=== PATIENT | female | born 1935 | race Caucasian/White ===

== ENCOUNTER → 2019-03-14 | Outpatient (REF) | LOC: M LAB LCGH 13:36 | PROVIDERS: ATTEND Surgery | DX: R59.1 Generalized enlarged lymph nodes (principal) ==

== ENCOUNTER 2019-04-16 11:01 | Inpatient (IN) | payer MEDICARE, BC ==
[~2019-04-16] VITALS: Ht 188 cm; Wt 76.5 kg
[2019-04-16 13:00] VITALS: BP 150/53
[2019-04-16] MEDS ORDERED: GLUCOSE 4 GM CHEW TABLET PO PRN (15:00)
[2019-04-16] MEDS ORDERED: DEXTROSE 50% 50 ML SYRINGE IV PRN (15:00)
[2019-04-16] MEDS ORDERED: GLUCAGON FOR INJ 1 MG VIAL (J1610) SC PRN (15:00)
[2019-04-16] MEDS ORDERED: SERT25TA21 PO (15:36)
[2019-04-16] MEDS ORDERED: DIGO0.123 PO (15:36)
[2019-04-16] MEDS ORDERED: FLON1SPR NARES (15:36)
[2019-04-16] MEDS ORDERED: NADO20TA PO (15:36)
[2019-04-16] MEDS ORDERED: ASCO500T PO (15:36)
[2019-04-16] MEDS ORDERED: BACITAB PO (15:36)
[2019-04-16] MEDS ORDERED: ROPI0.5T PO ×2 (15:36)
[2019-04-16] MEDS ORDERED: LEVOTAB10 PO (15:36)
[2019-04-16] MEDS ORDERED: SIMV40TA20 PO (15:36)
[2019-04-16] MEDS ORDERED: GLIM4TAB3 PO (15:36)
[2019-04-16] MEDS ORDERED: VALS1TAB68 PO (15:36)
[2019-04-16] MEDS ORDERED: MIRA3350 PO (15:36)
[2019-04-16 16:50] LABS: HEMATOCRIT 32.3 % (36.0-47.0); HEMOGLOBIN 9.4 g/dl (12.0-15.5); MEAN CORPUSCULAR HEMOGLOBIN 23.8 pg (27.0-33.0); MEAN CORPUSCULAR HGB CONC 29.1 g/dl (32.0-36.5); MEAN CORPUSCULAR VOLUME 81.8 fl (80.0-96.0); PLATELET COUNT, AUTOMATED 260 10^3/uL (150-450); RED BLOOD COUNT 3.95 10^6/uL (4.00-5.40); WHITE BLOOD COUNT 9.8 10^3/uL (4.0-10.0)
[2019-04-16] MEDS: FUROSEMIDE 40 MG/4 ML VIAL (J1940) IV SCH ×2 (17:20→23:51)
[2019-04-16] MEDS: HumaLOG INSULIN (NovoLOG) PER UNIT SC SCH ×2 (17:21→21:00)
[2019-04-16] MEDS: CEFTAROLINE FOSAMIL 600 MG in D5W MINI-BAG PLUS 50 ML IV SCH (17:21)
[2019-04-16 17:24] LABS: INR 1.23; PROTHROMBIN TIME 15.2 SECONDS (11.8-14.0)
[2019-04-16 17:34] LABS: ALBUMIN 2.5 GM/DL (3.2-5.2); BILIRUBIN,TOTAL 0.6 MG/DL (0.2-1.0); CALCIUM LEVEL 9.1 MG/DL (8.8-10.2); CREATININE FOR GFR 1.58 MG/DL (0.55-1.30); GLOMERULAR FILTRATION RATE 33.1 (>32); POTASSIUM SERUM 5.4 MEQ/L (3.5-5.1)
[2019-04-16] MEDS ORDERED: APIXABAN 5 MG TAB (ELIQUIS) PO SCH (21:00)
[2019-04-16] MEDS: rOPINIRole 1MG TAB PO SCH (21:13)
[2019-04-16] MEDS: DOCUSATE SODIUM 100 MG CAP PO SCH (21:14)
[2019-04-16] MEDS ORDERED: rOPINIRole 0.25 MG TAB(REQUIP) PO PRN (21:15)
[2019-04-16] MEDS ORDERED: rOPINIRole 1MG TAB PO PRN (21:19)
--- NOTE | 2019-04-16 21:26 | HPEPDOC ---
General Date of Admission Apr 16, 2019 at 14:26 Date of Service: Apr 16, 2019 Chief Complaint The patient is a 83-year-old female admitted with a reason for visit of DVT. 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 Cori complained of bilateral leg swelling graudually increasing for 2 to 3 moths wors e over the past month since she got the surgery in the right inguinal region and yesterday noted that the right leg was much more swollen than the left and much more red and painful and she could not bear any weight. She was admitted to [facility] where she was found to have left femoral DVT and gross bilateral subcutaneous edema right much worse than left with a possible localization in the right inguinal region which could be just subcutaneous Edema . She was evaluated by surgeon in [place] and he did not feel that there was any localized collection that needed to be drained. It was felt to tbe localized inguinal cellulitis. Pateint was started on vanco and zosyn in the other hospital cultures were sent. She was also started on Therapeutic lovenox. Her Hb on admission was 8.5 this morning it dropped to 7.0. patient was given 1 unit of blood and was placed for transfer to our hospital for consideration of IVC filter placement for [facility] possibility of ongoing bleeding and unable to use anticoagulation for the acute DVT. Patient was transferred here for futher management. Patient o my interview complained of pain and swelling of the right leg maximum in the right groin with pain of about 6/10 with no radiation . It was sharp stretching type. She denied any bleeding from anywhere. Dr Cuellar agreed to place a IVC filter tomorrow. Labs from [place] on 04/15 and 04/16 Hb 8.6 to 7.0, BUN 43, creatinine 1.7, albumin 2.3, B12 556, Folate 21.6, DIg 1.6, lactate 0.8, crp 50.6, ESR 56, iron 21, TSAT 9, TIBC 229, blood cultures and urine cultures were in progress, WBC 12K. Home Medications Scheduled Ascorbic Acid (Ascorbic Acid) 500 Mg Tablet, 1,000 MG PO DAILY, (Reported) Digoxin (Digoxin) 125 Mcg Tablet, 125 MCG PO Q2D, (Reported) ALTERNATES WITH 62.5MCG Digoxin (Digoxin) 125 Mcg Tablet, 62.5 MCG PO Q2D, (Reported) ALTERNATES WITH 125MCG Glimepiride (Glimepiride) 4 Mg Tablet, 4 MG PO DAILY, (Reported) L.acidoph/L.bulg/B.bif/S.therm (Bacid Caplet) 1 Each Tablet, 1 TAB PO DAILY, (Reported) Levocetirizine Dihydrochloride (Levocetirizine Dihydrochloride) 5 Mg Tablet, 5 MG PO DAILY, (Reported) Nadolol (Nadolol) 20 Mg Tablet, 20 MG PO DAILY, (Reported) Ropinirole HCl (Ropinirole HCl) 0.5 Mg Tablet, 1 MG PO QPM, (Reported) Sertraline HCl (Sertraline HCl) 25 Mg Tablet, 25 MG PO DAILY, (Reported) Simvastatin (Simvastatin) 40 Mg Tablet, 40 MG PO DAILY, (Reported) Valsartan (Valsartan) 320 Mg Tablet, 320 MG PO DAILY, (Reported) Scheduled PRN Fluticasone Propionate (Flonase Allergy Relief) 9.9 Ml [place].susp, 2 SPRAY NARES DAILY PRN for NASAL CONGESTION, (Reported) Polyethylene Glycol 3350 (Miralax) 119 Gm Powder, 17 GM PO DAILY PRN for CONSTIPATION, (Reported) dilute in 8 ounces of water or juice Ropinirole HCl (Ropinirole HCl) 0.5 Mg Tablet, 1 MG PO QHS PRN for RESTLESSNESS, (Reported) Allergies Coded Allergies: No Known Allergies (Verified Allergy, Unknown, 04/16/19) Past Medical History Medical History PSVT, Cervical cancer at age 29 s/p JOSE L and BSO, Right inguinal hernia s/p excis ion on 03/14/19, chronic anemia, Diabetes with diabetic neuropathy, GERD, asthma, depression, restless leg syndrome, hypertension, hyperlipidemia, anxiety, esophageal web, urge incontinence, impaired hearing, h/o rheumatc fever as a child. Surgical History appendectomy JOSE L and BSO bilateral cataracts neck surgery. Family History Significant Family History: Cancer (cervical cancer in mother and sister), Diabetes (mother) Social History * Smoker: Denies Alcohol: Denies Drugs: denies A-FIB/CHADSVASC A-FIB History Current/History of A-Fib/PAF?: No Review of Systems Constitutional: Reports: Weakness; Denies: Chills, Fever, Night Sweats Eyes: Denies: Pain, Vision change ENT: Reports: Head Aches Skin: Denies: Rash, Lesions, Breakdown Pulmonary: Denies: Dyspnea, Cough Cardiovascular: Reports: Edema; Denies: Chest Pain, Palpitations, Orthopnea, Paroxysmal Noc. Dyspnea, Lt Headedness Gastrointestinal: Reports: Abdominal Pain (right lower); Denies: Nausea, Vomiting, Diarrhea Genitourinary: Reports: Frequency, Incontinence Hematologic: Denies: Bruising, Bleeding Excessively Musculoskeletal: Reports: Leg Pain; Denies: Neck Pain, Back Pain, Joint Pain, Muscle Pain, Spasms Physical Examination General Exam: Positive: Alert, Cooperative, No Acute Distress Eye Exam: Positive: PERRLA, Conjunctiva & lids normal, EOMI; Negative: Sclera icteric ENT Exam: Positive: Atraumatic, Mucous membr. moist/pink, Pharynx Normal Neck Exam: Positive: Supple; Negative: JVD, thyromegaly Chest Exam: Positive: Clear to auscultation, Normal air movement Heart Exam: Positive: Rate Normal, Regular Rhythm, Normal S1, Normal S2, Murmurs (soft systolic murmur); Negative: Rubs Abdomen Exam: Positive: Normal bowel sounds, Soft, Tenderness (in the irhgt inguinal region); Negative: Hepatospenomegaly Extremity Exam: Positive: Edema (4+ bilateral pitting edema right . left extending up to both thighs, lower abdominal wall , bothe buttocks upto midback), Swelling (extending from jamee legs upto the chest anteroirly and also on the back up to the lowere chest) Skin Exam: Positive: Nl turgor and temperature Vital Signs Vital Signs Date Time Temp Pulse Resp B/P (MAP) Pulse Ox O2 Delivery O2 Flow Rate FiO2 04/16/19 13:00 98.5 63 16 150/53 (85) 97 Room Air Laboratory Data Labs 24H Laboratory Tests 2 04/16/19 16:37: Nucleated Red Blood Cells % (auto) 0.0, Prothrombin Time 15.2H, Prothromb Time International Ratio 1.23, Anion Gap 8, Glomerular Filtration Rate 33.1, Calcium Level 9.1, Ferritin 352H, Total Bilirubin 0.6, Aspartate Amino Transf (AST/SGOT) 16, Alanine Aminotransferase (ALT/SGPT) 14, Alkaline Phosphatase 90, Total Protein 6.0L, Albumin 2.5L, Albumin/Globulin Ratio 0.71L 04/16/19 16:52: Bedside Glucose (Misc Panel) 53L 04/16/19 17:30: Bedside Glucose (Misc Panel) 59L CBC/BMP Laboratory Tests 04/16/19 16:37 Assessment/Plan 83 year old female with PMH of PSVT, Cervical cancer at age 29 s/p JOSE L and BSO, Right inguinal hernia s/p excision on 03/14/19, chronic anemia, Diabetes with diabetic neuropathy, GERD, asthma, depression, restless leg syndrome, hypertension, hyperlipidemia, anxiety, esophageal web, urge incontinence, impaired hearing, h/o rheumatc fever as a child first presented to [place] ED from home for sudden difficulty in ambulating. Cori complained of bilateral leg swelling graudually increasing for 2 to 3 moths worse over the past month since she got the surgery in the right inguinal region and yesterday noted that the right leg was much more swollen than the left and much more red and painful and she could not bear any weight. She was admitted to [facility] where she was found to have left femoral DVT and gross bilateral subcutaneous edema right much worse than left with a possible localization in [facility] right inguigal region which could be just subcutaneous edea. She was evaluated by surgeon in [place] and he did not feel that there was any localized collection that needed to be drained. It was felt to tbe localized cellulitis. Sheilaeint was started on vanco and zosyn in the other hospital cultures were sent. She was also started on Therapeutic lovenox. Her Hb on admission was 8.5 this morning it dropped to 7.0. cori was given 1 unit of blood and was placed for transfer to our hospital for consideration of IVC filter placement for jamee possibility of ongoing bleeding and unable to use anticoagulation for the acute DVT. Patient was transferred here for futher management. Patient o my interview complained of pain and swelling of the right leg maximum in the right groin with pain of about 6/10 with no radiation . It was sharp stretching type. She denied any bleeding from anywhere. Dr Cuellar agreed to place a IVC filter tomorrow. Possible inguinal cellulitis vs chronic stasis and post surgical changes. will cover with ceftaroline till we get the cultures and procalcitonin back. no fever , no elevated WBC here. Left DVT for ivc filter placement No anticoagulation due to sudden drop in HH after starting lovenox NPO midnight. Anemia no overt bleeding. will check stool occult blood to evaluate for chronic GIB. patient does have chronic anemia possibly for CKD no iron def, no folate def and no Vit b12 def at present. received 1 unti of PRBC will monitor hh will place on pantoprazole. Anasarca probably due to hypoalbuminemia due to diabetic nephropathy, malnutrition, CKD. need to evaluate cardiac function for possible CHF echo will place the patient of lasix IV CKD stage 3 to 4 with massive fluid overload and chronic anemia and hyperkalemia. Creatinine may be appearing ot be flasely low due to fluid overload. will monitor creatinine as with successful diuresis the creatinine may go up. continue lasix. hold ACEI Hypertension will continue nadolol, hold ARB as hyperkalemic Diabetes will continue glimiperide and lispro AC and HS. Fs AC and HS. Hyperlipidemia statin. Depression sertraline Restless legs ropinirole PSVT patient on digoxin and nadolol at home will continue. [facility] Plan / VTE VTE Prophylaxis Ordered?: Yes MAREK ANTUNEZ MD Apr 16, 2019 18:53
[2019-04-16 22:00] VITALS: BP 142/65
[2019-04-16 23:41] LABS: HEMATOCRIT 29.7 % (36.0-47.0); HEMOGLOBIN 8.8 g/dl (12.0-15.5)
[2019-04-17] VITALS (9 sets, daily range): BP systolic 128–153; BP diastolic 53–70
[2019-04-17] MEDS: CEFTAROLINE FOSAMIL 600 MG in D5W MINI-BAG PLUS 50 ML IV SCH ×2 (05:31→17:17)
[2019-04-17 06:04] LABS: HEMATOCRIT 28.8 % (36.0-47.0); HEMOGLOBIN 8.8 g/dl (12.0-15.5); MEAN CORPUSCULAR HEMOGLOBIN 23.9 pg (27.0-33.0); MEAN CORPUSCULAR HGB CONC 30.6 g/dl (32.0-36.5); MEAN CORPUSCULAR VOLUME 78.3 fl (80.0-96.0); PLATELET COUNT, AUTOMATED 264 10^3/uL (150-450); RED BLOOD COUNT 3.68 10^6/uL (4.00-5.40); WHITE BLOOD COUNT 9.6 10^3/uL (4.0-10.0)
[2019-04-17 06:29] LABS: CALCIUM LEVEL 8.7 MG/DL (8.8-10.2); CREATININE FOR GFR 1.65 MG/DL (0.55-1.30); GLOMERULAR FILTRATION RATE 31.5 (>32); POTASSIUM SERUM 4.7 MEQ/L (3.5-5.1)
[2019-04-17] MEDS: HumaLOG INSULIN (NovoLOG) PER UNIT SC SCH ×4 (07:30→20:20)
[2019-04-17] MEDS: GLIMEPIRIDE 2 MG TAB PO SCH (07:30)
[2019-04-17] MEDS: FUROSEMIDE 40 MG/4 ML VIAL (J1940) IV SCH ×2 (07:54→16:19)
[2019-04-17] MEDS ORDERED: VALSARTAN 80 MG TAB (DIOVAN) PO SCH (09:00)
[2019-04-17] MEDS: DIGOXIN 0.0625MG PER 1/2TABLET PO SCH (09:00)
[2019-04-17] MEDS ORDERED: diphenhydrAMINE INJ 50MG/ML VIAL (J1200) As Ordered ONE (10:29)
[2019-04-17] MEDS ORDERED: ISOVUE-300 61% 50ML VIAL (Q9967) As Ordered ONE (10:30)
[2019-04-17] MEDS ORDERED: MIDAZOLAM INJ 2 MG/2 ML VIAL (J2250) As Ordered ONE (10:30)
[2019-04-17] MEDS ORDERED: fentaNYL 100 MCG/2 ML INJECTION (J3010) As Ordered ONE (10:30)
[2019-04-17] MEDS ORDERED: HEPARIN 1,000 UNITS/ML 10ML VIAL (FOR RADIOLOGY& DIALYSIS ONLY) As Ordered ONE (10:30)
[2019-04-17] MEDS ORDERED: LIDOCAINE 1% MDV 20ML VIAL As Ordered ONE (10:31)
--- NOTE | 2019-04-17 12:16 | IRMSE ---
[facility] IR Moderate Sedation Eval. Date and Time Date: Apr 17, 2019 Time: 11:10 ASA Classification ASA Classification: III-Severe systemic dis. Mallampati Score: II NPO: Yes Obstructive Sleep Apnea: No Interval Plan: moderate sedation JULIEN ROGERS MD Apr 17, 2019 12:16
--- NOTE | 2019-04-17 12:17 | POST-OPPD ---
Postoperative Procedure Note Date Of Procedure: Apr 17, 2019 Time Of Procedure: 12:16 PREOPERATIVE DIAGNOSIS: DVT CI to AC POSTOPERATIVE DIAGNOSIS: same FINDINGS: normal ivc PROCEDURE: IVC filter placed SURGEON: beatris ANESTHESIA: mod sed ESTIMATED BLOOD LOSS: < 5 ml COMPLICATIONS: none POSTOPERATIVE CONDITION: stable JULIEN ROGERS MD Apr 17, 2019 12:17
[2019-04-17] MEDS: SIMVASTATIN 40 MG TAB PO SCH (12:50)
[2019-04-17] MEDS: NADOLOL 20MG TABLET PO SCH (12:50)
[2019-04-17] MEDS: SERTRALINE HCL 25 MG TABLET PO SCH (12:50)
[2019-04-17] MEDS: DOCUSATE SODIUM 100 MG CAP PO SCH ×2 (12:51→20:47)
[2019-04-17] MEDS ORDERED: ACETAMINOPHEN 500 MG TAB PO PRN (13:30)
--- NOTE | 2019-04-17 13:42 | IPNPDOC ---
Subjective Date Seen The patient was seen on 04/17/19. Subjective Chief Complaint/HPI Continues to have right leg pain. Had IVC filter placement this am. Good urine ouput overnight with net negative of 2.8 liters in less than 24 hours. Denies any SOb or any cough . no fever or chills, no chest pain Objective Physical Examination General Exam: Positive: Alert, Cooperative, No Acute Distress Eye Exam: Positive: PERRLA, Conjunctiva & lids normal, EOMI; Negative: Sclera icteric ENT Exam: Positive: Atraumatic, Mucous membr. moist/pink, Pharynx Normal Neck Exam: Positive: Supple; Negative: JVD, thyromegaly Chest Exam: Positive: Clear to auscultation, Normal air movement Heart Exam: Positive: Rate Normal, Regular Rhythm, Normal S1, Normal S2, Murmurs (soft systolic murmur); Negative: Rubs Abdomen Exam: Positive: Normal bowel sounds, Soft, Tenderness (in the irhgt inguinal region); Negative: Hepatospenomegaly Extremity Exam: Positive: Edema (4+ bilateral pitting edema right . left extending up to both thighs, lower abdominal wall , bothe buttocks upto midback), Swelling (extending from [facility] legs upto the chest anteroirly and also on the back up to the lowere chest) Skin Exam: Positive: Nl turgor and temperature Assessment /Plan Assessment 83 year old female with PMH of PSVT, Cervical cancer at age 29 s/p JOSE L and BSO, Right inguinal hernia s/p excision on 03/14/19, chronic anemia, Diabetes with diabetic neuropathy, GERD, asthma, depression, restless leg syndrome, hypertension, hyperlipidemia, anxiety, esophageal web, urge incontinence, impaired hearing, h/o rheumatc fever as a child first presented to [place] ED from home for sudden difficulty in ambulating. [place] complained of bilateral leg swelling graudually increasing for 2 to 3 moths worse over the past month since she got the surgery in the right inguinal region and yesterday noted that the right leg was much more swollen than the left and much more red and painful and she could not bear any weight. She was admitted to [facility] where she was found to have left femoral DVT and gross bilateral subcutaneous edema right much worse than left with a possible localization in jamee right inguigal region which could be just subcutaneous edea. She was evaluated by surgeon in [place] and he did not feel that there was any localized collection that needed to be drained. It was felt to tbe localized cellulitis. Pateint was started on vanco and zosyn in the other hospital cultures were sent. She was also started on Therapeutic lovenox. Her Hb on admission was 8.5 this morning it dropped to 7.0. patient was given 1 unit of blood and was placed for transfer to our hospital for consideration of IVC filter placement for the possibility of ongoing bleeding and unable to use anticoagulation for the acute DVT. Patient was transferred here for further management. Patient o my interview complained of pain and swelling of the right leg maximum in the right groin with pain of about 6/10 with no radiation . It was sharp stretching type. She denied any bleeding from anywhere. Dr Cuellar agreed to place a IVC filter tomorrow. Possible inguinal Cellulitis vs chronic stasis and post surgical changes. will cover with ceftaroline till we get the cultures and procalcitonin back. no fever , no elevated WBC here. Left DVT Had IVC filter placed on 04/17/19 No anticoagulation due to sudden drop in HH after starting lovenox Anemia no overt bleeding. will check stool occult blood to evaluate for chronic GIB. patient does have chronic anemia possibly from CKD no iron def, no folate def and no Vit b12 def at present. received 1 unit of PRBC will monitor hh will place on pantoprazole. Anasarca probably due to hypoalbuminemia due to diabetic nephropathy, malnutrition, CKD. will check 24 hour urine for protein to seen if she has nephrotic syndrome or not. need to evaluate cardiac function for possible CHF echo will place the patient of lasix IV CKD stage 3 to 4 with massive fluid overload and chronic anemia and hyperkalemia. Creatinine may be appearing ot be flasely low due to fluid overload. will monitor creatinine as with successful diuresis the creatinine may go up. continue lasix. hold ACEI Hypertension will continue nadolol, hold ARB Diabetes will continue glimiperide and lispro AC and HS. Fs AC and HS. Hyperlipidemia statin. Depression sertraline Restless legs ropinirole PSVT patient on digoxin and nadolol at home will continue. Dig level 1.6 from [place]. Plan/VTE VTE Prophylaxis Ordered?: Yes VS, I&O, 24H, Fishbone Vital Signs/I&O Vital Signs Date Time Temp Pulse Resp B/P (MAP) Pulse Ox O2 Delivery O2 Flow Rate FiO2 04/17/19 13:30 97.5 58 17 131/54 (79) 95 Room Air 04/17/19 11:45 3 I&O- Last 24 Hours up to 6 AM 04/17/19 06:00 Intake Total 370 ml Output Total 2675 ml Balance -2305 ml Laboratory Data 24H LABS Laboratory Tests 2 04/16/19 16:37: Nucleated Red Blood Cells % (auto) 0.0, Prothrombin Time 15.2H, Prothromb Time I nternational Ratio 1.23, Anion Gap 8, Glomerular Filtration Rate 33.1, Calcium Level 9.1, Ferritin 352H, Total Bilirubin 0.6, Aspartate Amino Transf (AST/SGOT) 16, Alanine Aminotransferase (ALT/SGPT) 14, Alkaline Phosphatase 90, Total Protein 6.0L, Albumin 2.5L, Albumin/Globulin Ratio 0.71L 04/16/19 16:52: Bedside Glucose (Misc Panel) 53L 04/16/19 17:30: Bedside Glucose (Misc Panel) 59L 04/16/19 18:45: Bedside Glucose (Misc Panel) 126H 04/16/19 20:30: Bedside Glucose (Misc Panel) 158H 04/17/19 05:46: Nucleated Red Blood Cells % (auto) 0.0, Anion Gap 8, Glomerular Filtration Rate 31.5L, Calcium Level 8.7L 04/17/19 12:45: Bedside Glucose (Misc Panel) 61L CBC/BMP Laboratory Tests 04/16/19 16:37 04/16/19 23:31 04/17/19 05:46 MAREK ANTUNEZ MD Apr 17, 2019 13:42
[2019-04-17 13:48] LABS: HEMATOCRIT 31.4 % (36.0-47.0); HEMOGLOBIN 9.5 g/dl (12.0-15.5)
[2019-04-17 14:26] LABS: APPEARANCE, URINE CLOUDY (CLEAR); BACTERIA, URINE AUTO 1+ (NEGATIVE); BILIRUBIN, URINE AUTO NEGATIVE (NEGATIVE); BLOOD, URINE BLOOD 1+ (NEGATIVE); COLOR, URINE YELLOW (YELLOW); GLUCOSE, URINE (UA) AUTO NEGATIVE (NEGATIVE); KETONE, URINE AUTO NEGATIVE (NEGATIVE); LEUKOCYTE ESTERASE, URINE AUTO 3+ (NEGATIVE); MUCUS, URINE SMALL (NEGATIVE); NITRITE, URINE AUTO NEGATIVE (NEGATIVE); PROTEIN, URINE AUTO NEGATIVE (NEGATIVE); RBC, URINE AUTO 18 /HPF (0-3); SPECIFIC GRAVITY URINE AUTO 1.009 (1.002-1.035); SQUAMOUS EPITHELIAL CELL UR AU 4 /HPF (0-6); TRANSITIONAL EPITHELIAL AUTO <1 /HPF; UROBILINOGEN, URINE AUTO 0.2 mg/dL (0.0-2.0); WBC, URINE AUTO 180 /HPF (0-3)
[2019-04-17 17:06] LABS: HEMATOCRIT 30.3 % (36.0-47.0); HEMOGLOBIN 9.3 g/dl (12.0-15.5)
--- NOTE | 2019-04-17 19:41 | ECHO ---
DATE OF PROCEDURE: 04/17/2019 REFERRING PHYSICIAN: Dr. Sam Sandra INDICATION: Edema. HEIGHT: 188 cm WEIGHT: 74 kg DIMENSIONS: IVS: 1.0 LV: 3.6 LVPW: 1.1 LA: 3.2 Aorta: 3.2 RV: 3.2 Mitral E wave velocity: 105, A wave: 149 FINDINGS: Study is of good technical quality. The patient is in sinus rhythm. Left ventricle is of normal size and has hyperdynamic contractility with estimated left ventricular ejection fraction (LVEF) around 70%. Right ventricle does not appear grossly enlarged. Left atrium is at least mildly enlarged. Right atrium appears normal. Aortic valve is tricuspid. There is prominent sclerosis but no significant limitations of mobility. There are also degenerative abnormalities of mitral valve with mitral annular calcifications. Tricuspid valve appears normal. Pulmonic valve was not well seen. Small noncompressive pericardial effusion is noted. Inferior vena cava is normal size. Aortic root appears normal. Aortic arch and abdominal aorta were not well visualized. Doppler interrogation of aortic valve reveals trace insufficiency and trivial stenosis with mean gradient only 6 mmHg. There is no significant mitral stenosis or insufficiency. There is trace tricuspid insufficiency with calculated pulmonary artery pressure within normal limits. Mitral inflow pattern reveals grade 1 diastolic dysfunction. CONCLUSION 1. Study is of good technical quality. 2. Normal LV size with hyperdynamic LV systolic function and grade 1 diastolic dysfunction. 3. No hemodynamically significant valvular disease. 4. Normal central venous pressure and probably normal pulmonary artery pressure. 5. Small noncompressive pericardial effusion. COMMENT: Subacute bacterial endocarditis (SBE) prophylaxis is not recommended. The study is not supportive of cardiac cause of the patient's edema. [facility]
[2019-04-17] MEDS: rOPINIRole 1MG TAB PO SCH (20:47)
[2019-04-17 23:04] LABS: HEMATOCRIT 29.7 % (36.0-47.0); HEMOGLOBIN 9.1 g/dl (12.0-15.5)
[2019-04-18] MEDS: FUROSEMIDE 40 MG/4 ML VIAL (J1940) IV SCH ×3 (00:21→21:38)
[2019-04-18 02:00] VITALS: BP 121/46
[2019-04-18 06:23] LABS: HEMATOCRIT 30.2 % (36.0-47.0); HEMOGLOBIN 8.9 g/dl (12.0-15.5); MEAN CORPUSCULAR HEMOGLOBIN 23.7 pg (27.0-33.0); MEAN CORPUSCULAR HGB CONC 29.5 g/dl (32.0-36.5); MEAN CORPUSCULAR VOLUME 80.3 fl (80.0-96.0); PLATELET COUNT, AUTOMATED 250 10^3/uL (150-450); RED BLOOD COUNT 3.76 10^6/uL (4.00-5.40); WHITE BLOOD COUNT 9.4 10^3/uL (4.0-10.0)
[2019-04-18 06:45] LABS: CALCIUM LEVEL 9.1 MG/DL (8.8-10.2); CREATININE FOR GFR 1.99 MG/DL (0.55-1.30); GLOMERULAR FILTRATION RATE 25.4 (>32); POTASSIUM SERUM 4.3 MEQ/L (3.5-5.1)
[2019-04-18] MEDS: HumaLOG INSULIN (NovoLOG) PER UNIT SC SCH ×3 (07:30→17:25)
[2019-04-18] MEDS: GLIMEPIRIDE 2 MG TAB PO SCH (09:21)
[2019-04-18] MEDS: MIRALAX *UNIT DOSE* 17GM PACKET PO SCH (09:22)
[2019-04-18] MEDS: SIMVASTATIN 40 MG TAB PO SCH (09:22)
[2019-04-18] MEDS: DOCUSATE SODIUM 100 MG CAP PO SCH ×2 (09:22→21:39)
[2019-04-18] MEDS: SENNA 8.6 MG TAB (SENOKOT) PO SCH ×2 (09:22→21:39)
[2019-04-18] MEDS: SERTRALINE HCL 25 MG TABLET PO SCH (09:22)
[2019-04-18] MEDS: NADOLOL 20MG TABLET PO SCH (09:23)
[2019-04-18] MEDS: DIGOXIN 0.125 MG TAB PO SCH (09:24)
[2019-04-18 10:00] VITALS: BP 128/60
--- NOTE | 2019-04-18 10:42 | IRINPTCON ---
[facility] IR Inpatient Consultation IR Inpatient Consultation DATE: Apr 17, 2019 REASON FOR CONSULTATION/CHIEF COMPLAINT: Lower extremity deep vein thrombosis. Contraindication to anticoagulation. HISTORY OF PRESENT ILLNESS: 83-year-old female status post right inguinal hernia excision on 03/14/2019 presented to [facility] with right leg swelling and pain greater than left. She was admitted to [facility] where she was found to have a left femoral deep vein thrombosis. She was started on Lovenox but hemoglobin dropped from 8.5 to 7 with concerns for occult bleeding and or complications associated with right groin surgical site. May require ongoing surgical revision and/or debridement of site. Therefore provider request an IVC filter placement for contraindications to anti-coagulation. ALLERGIES: Please see below. HOME MEDICATIONS: Please see below. PAST MEDICAL HISTORY: PSVT Cervical cancer Right inguinal hernia Chronic anemia Diabetes GERD Asthma Depression Restless leg syndrome Hypertension Hyperlipidemia Anxiety Esophageal web Impaired hearing Urge incontinence PAST SURGICAL HISTORY: Appendectomy JOSE L and BSO Bilateral cataract surgery Neck surgery FAMILY HISTORY: Noncontributory SOCIAL HISTORY: Nonsmoker, no alcohol or drugs REVIEW OF SYSTEMS: Otherwise negative PHYSICAL EXAMINATION: VITAL SIGNS: Please see below. GENERAL APPEARANCE: Appears well. Comfortable at rest. HEENT: No scleral icterus. RESPIRATORY: Normal breathing at rest. CARDIOVASCULAR: Normal rate. ABDOMEN: Non-distended. EXTREMITIES: Right groin and thigh, incredibly red, inflamed and tender and tense to touch. Left groin soft nontender. NEUROLOGICAL: Alert and oriented. PSYCHIATRIC: Appropriate to circumstance. LABORATORY DATA: 04/17/2019 hemoglobin 8.8 WBC 9.6 hematocrit 28.8 platelets 264 04/16/2019 sodium 138 potassium 5.4 BUNs 41 creatinine 1.58 bilirubin 0.6 AST 16 male T 14 ALP 90 INR 1.23 ASSESSMENT/PLAN: 83-year-old female status post recent surgery with possible re- intervention required in the right groin presents with left lower extremity deep vein thrombosis, drop in hemoglobin, concern for occult bleeding and therefore request for IVC filter placement. I agree in this setting an IVC filter is indicated. However, patient should return when filter is no longer needed for removal. We will place the filter today. Patient to follow-up in IR clinic in 6 months. I spent 30 minutes in consultation with the patient. Thank you for this referral. Allergies Coded Allergies: No Known Allergies (Verified Allergy, Unknown, 04/16/19) Home Medications Scheduled Ascorbic Acid (Ascorbic Acid), 1,000 MG PO DAILY, (Reported) Digoxin (Digoxin), 125 MCG PO Q2D, (Reported) Digoxin (Digoxin), 62.5 MCG PO Q2D, (Reported) Glimepiride (Glimepiride), 4 MG PO DAILY, (Reported) L.acidoph/L.bulg/B.bif/S.therm (Bacid Caplet), 1 TAB PO DAILY, (Reported) Levocetirizine Dihydrochloride (Levocetirizine Dihydrochloride), 5 MG PO DAILY, (Reported) Nadolol (Nadolol), 20 MG PO DAILY, (Reported) Ropinirole HCl (Ropinirole HCl), 1 MG PO QPM, (Reported) Sertraline HCl (Sertraline HCl), 25 MG PO DAILY, (Reported) Simvastatin (Simvastatin), 40 MG PO DAILY, (Reported) Valsartan (Valsartan), 320 MG PO DAILY, (Reported) Scheduled PRN Fluticasone Propionate (Flonase Allergy Relief), 2 SPRAY NARES DAILY PRN for NASAL CONGESTION, (Reported) Polyethylene Glycol 3350 (Miralax), 17 GM PO DAILY PRN for CONSTIPATION, (Reported) Ropinirole HCl (Ropinirole HCl), 1 MG PO QHS PRN for RESTLESSNESS, (Reported) VS, I&O, 24H, Fishbone Vital Signs/I&O Vital Signs Date Time Temp Pulse Resp B/P (MAP) Pulse Ox O2 Delivery O2 Flow Rate FiO2 04/18/19 09:24 68 04/18/19 09:23 120/56 04/18/19 06:00 98.5 18 93 Room Air 04/17/19 11:45 3 I&O- Last 24 Hours up to 6 AM 04/18/19 06:00 Intake Total 570 ml Output Total 2750 ml Balance -2180 ml Laboratory Data 24H LABS Laboratory Tests 2 04/17/19 12:45: Bedside Glucose (Misc Panel) 61L 04/17/19 13:44: Bedside Glucose (Misc Panel) 84 04/17/19 14:00: Urine Color YELLOW, Urine Appearance CLOUDYH, Urine pH 5.0, Urine Specific [place] 1.009, Urine Protein NEGATIVE, Urine Glucose (Auto)(UA) NEGATIVE, Urine Ketones (Auto) NEGATIVE, Urine Blood 1+H, Urine Nitrite NEGATIVE, Urine Bilirubin NEGATIVE, Urine Urobilinogen 0.2, Urine Leukocyte Esterase (Auto) 3+H, Urine WBC (Auto) 180H, Urine RBC (Auto) 18H, Urine Hyaline Casts (Auto) 15, Ur ine Bacteria (Auto) 1+H, Urine Squamous Epithelial Cells 4, Urine Transitional Epithelial Cells <1, Urine Mucus (Auto) SMALL, Urine Sperm (Auto) 04/17/19 16:21: Bedside Glucose (Misc Panel) 104 04/17/19 20:14: Bedside Glucose (Misc Panel) 188H 04/18/19 05:42: Nucleated Red Blood Cells % (auto) 0.0, Anion Gap 8, Glomerular Filtration Rate 25.4L, Calcium Level 9.1 CBC/BMP Laboratory Tests 04/17/19 13:11 04/17/19 16:43 04/17/19 22:56 04/18/19 05:42 JULIEN ROGERS MD Apr 18, 2019 10:42
--- NOTE | 2019-04-18 10:57 | REP ---
IR IVC filter placement. IR Venogram. IR moderate sedation. Ultrasound of the left groin. Ultrasound of the right neck Clinical indication : Deep vein thrombosis. Contraindication to anticoagulation. Physician: Dr. Cuellar. Procedure: The patient was advised of the benefits, risks and alternatives of the procedure and informed consent was obtained. The time-out was performed with verification of the patient's name, MRN, site of procedure and type of procedure to be performed. The patient was positioned in the supine position on the angiographic table. The site was prepped and draped in the usual sterile fashion. Moderate sedation was performed by the physician including the presence of an independent trained observer who assisted in monitoring the patient's level of consciousness and physiologic status. Following administration of Fentanyl and Versed , the physician spent 45 minutes of continuous face to face time with the patient. Preliminary ultrasound of the left groin was performed and this demonstrates thrombus within the left common femoral vein which is noncompressible. The left common femoral vein was accessed using a micropuncture kit, but the thrombus could not be cannulated. Preliminary ultrasound of the right neck was therefore performed and this demonstrates patent and compressible right internal jugular vein. The site was prepped and draped in the usual sterile fashion. The right internal jugular vein was accessed under ultrasound guidance using a micropuncture kit. An 018 wire was advanced into the inferior vena cava. The needle was exchanged for a micro sheath. The inner stiffener was removed and an Amplatz wire was advanced through the micro sheath under fluoroscopy guidance into the inferior vena cava and left common iliac vein. The sheath was exchanged over the wire for an IVC filter sheath. An inferior vena cava venogram was then performed demonstrating a normal caliber inferior vena cava without filling defects and the renal vein inflow at the L1 L2 level. No caval anomalies were identified. A filter was then advanced through the sheath and positioned within the infrarenal inferior vena cava. The filter was then deployed in the usual fashion. Positioning was confirmed fluoroscopically. The sheath was then removed and hemostasis obtained with manual compression. The patient tolerated the procedure well and was returned to PRU in stable condition. EBL: Less than 5 ml. Complications: None. Conclusion: 1. Normal inferior vena cava venogram. 2. Successful deployment of a cook select filter in the infrarenal inferior vena cava. 3. Patient to return for filter retrieval when no longer needed. Follow up in IR clinic in 6 months. Thank you this referral. Electronically Signed by Keily Cuellar MD 04/18/2019 10:55 A
--- NOTE | 2019-04-18 12:02 | IPNPDOC ---
Subjective Date Seen The patient was seen on 04/18/19. Subjective Chief Complaint/HPI No new complaints this am. The legs are still very heavy and difficult to move, Denies any dysuria , has urinary incontinence, No fever or chills, no chest pain or SOB. Objective Physical Examination General Exam: Positive: Alert, Cooperative, No Acute Distress Eye Exam: Positive: PERRLA, Conjunctiva & lids normal, EOMI; Negative: Sclera icteric ENT Exam: Positive: Atraumatic, Mucous membr. moist/pink, Pharynx Normal Neck Exam: Positive: Supple; Negative: JVD, thyromegaly Chest Exam: Positive: Clear to auscultation, Normal air movement Heart Exam: Positive: Rate Normal, Regular Rhythm, Normal S1, Normal S2, Murmurs (soft systolic murmur); Negative: Rubs Abdomen Exam: Positive: Normal bowel sounds, Soft, Tenderness (in the irhgt inguinal region); Negative: Hepatospenomegaly Extremity Exam: Positive: Edema (4+ bilateral pitting edema right . left extending up to both thighs, lower abdominal wall , bothe buttocks upto midbac k), Swelling (extending from [facility] legs upto the chest anteroirly and also on the back up to the lowere chest) Skin Exam: Positive: Nl turgor and temperature Assessment /Plan Assessment 83 year old female with PMH of PSVT, Cervical cancer at age 29 s/p JOSE L and BSO, Right inguinal hernia s/p excision on 03/14/19, chronic anemia, Diabetes with d iabetic neuropathy, GERD, asthma, depression, restless leg syndrome, hypertension, hyperlipidemia, anxiety, esophageal web, urge incontinence, impaired hearing, h/o rheumatc fever as a child first presented to [place] ED from home for sudden difficulty in ambulating. Irving complained of bilateral leg swelling graudually increasing for 2 to 3 moths worse over the past month since she got the surgery in the right inguinal region and yesterday noted that the right leg was much more swollen than the left and much more red and painful and she could not bear any weight. She was admitted to [facility] where she was found to have left femoral DVT and gross bilateral subcutaneous edema right much worse than left with a possible localization in [facility] right inguigal region which could be just subcutaneous edea. She was evaluated by surgeon in [place] and he did not feel that there was any localized collection that needed to be drained. It was felt to tbe localized cellulitis. Pateint was started on vanco and zosyn in the other hospital cultures were sent. She was also started on Therapeutic lovenox. Her Hb on admission was 8.5 this morning it dropped to 7.0. patient was given 1 unit of blood and was placed for transfer to our hospital for consideration of IVC filter placement for the possibility of ongoing bleeding and unable to use anticoagulation for the acute DVT. Patient was transferred here for further management. Patient o my interview complained of pain and swelling of the right leg maximum in the right groin with pain of about 6/10 with no radiation . It was sharp stretching type. She denied any bleeding from anywhere. Dr Cuellar agreed to place a IVC filter tomorrow. No cellulitis, No elevation of WBC, procalcitonin low 0.21 antibiotic stopped Leg swelling and erythema is due to massive edema and stasis rubor with some post surgical changes in the right groin. Left DVT Had IVC filter placed on 04/17/19 Anemia no overt bleeding. will check stool occult blood to evaluate for chronic GIB. patient does have chronic anemia possibly from CKD no iron def, no folate def and no Vit b12 def at present. received 1 unit of PRBC HH stable. will place on pantoprazole. will probably give a trial of anticoagulation prior to discharge. Anasarca due to hypoalbuminemia due to malnutrition No protein in UA so no nephrotic syndrome. 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 Creatinine may be appearing ot be flasely low due to fluid overload. will monitor creatinine as with successful diuresis the creatinine may go up. continue lasix. hold ACEI Hypertension will continue nadolol, hold ARB Diabetes will continue glimiperide and lispro AC and HS. Fs AC and HS. Hyperlipidemia statin. Depression sertraline Restless legs ropinirole PSVT patient on digoxin and nadolol at home will continue. Dig level 1.6 from [place]. Plan/VTE VTE Prophylaxis Ordered?: Yes VS, I&O, 24H, Fishbone Vital Signs/I&O Vital Signs Date Time Temp Pulse Resp B/P (MAP) Pulse Ox O2 Delivery O2 Flow Rate FiO2 04/18/19 02:00 98.3 59 18 121/46 (71) 95 Room Air 04/17/19 11:45 3 I&O- Last 24 Hours up to 6 AM 04/18/19 06:00 Intake Total 570 ml Output Total 2100 ml Balance -1530 ml Laboratory Data 24H LABS Laboratory Tests 2 04/17/19 12:45: Bedside Glucose (Misc Panel) 61L 04/17/19 13:44: Bedside Glucose (Misc Panel) 84 04/17/19 14:00: Urine Color YELLOW, Urine Appearance CLOUDYH, Urine pH 5.0, Urine Specific [place] 1.009, Urine Protein NEGATIVE, Urine Glucose (Auto)(UA) NEGATIVE, Urine Ketones (Auto) NEGATIVE, Urine Blood 1+H, Urine Nitrite NEGATIVE, Urine Bilirubin NEGATIVE, Urine Urobilinogen 0.2, Urine Leukocyte Esterase (Auto) 3+H, Urine WBC (Auto) 180H, Urine RBC (Auto) 18H, Urine Hyaline Casts (Auto) 15, Urine Bacteria (Auto) 1+H, Urine Squamous Epithelial Cells 4, Urine Transitional Epithelial Cells <1, Urine Mucus (Auto) SMALL, Urine Sperm (Auto) 04/17/19 16:21: Bedside Glucose (Misc Panel) 104 04/17/19 20:14: Bedside Glucose (Misc Panel) 188H 04/18/19 05:42: Nucleated Red Blood Cells % (auto) 0.0 CBC/BMP Laboratory Tests 04/17/19 13:11 04/17/19 16:43 04/17/19 22:56 04/18/19 05:42 MAREK ANTUNEZ MD Apr 18, 2019 06:34
[2019-04-18] MEDS: rOPINIRole 1MG TAB PO SCH (21:39)
[2019-04-18 22:00] VITALS: BP 124/56
[2019-04-19 02:00] VITALS: BP 129/60
[2019-04-19 07:01] LABS: HEMATOCRIT 31.1 % (36.0-47.0); HEMOGLOBIN 9.2 g/dl (12.0-15.5); MEAN CORPUSCULAR HEMOGLOBIN 23.7 pg (27.0-33.0); MEAN CORPUSCULAR HGB CONC 29.6 g/dl (32.0-36.5); MEAN CORPUSCULAR VOLUME 79.9 fl (80.0-96.0); PLATELET COUNT, AUTOMATED 260 10^3/uL (150-450); RED BLOOD COUNT 3.89 10^6/uL (4.00-5.40); WHITE BLOOD COUNT 12.5 10^3/uL (4.0-10.0)
[2019-04-19] MEDS ORDERED: GLIMEPIRIDE 2 MG TAB PO SCH (07:30)
[2019-04-19 07:43] LABS: CALCIUM LEVEL 8.9 MG/DL (8.8-10.2); CREATININE FOR GFR 2.13 MG/DL (0.55-1.30); GLOMERULAR FILTRATION RATE 23.4 (>32)
[2019-04-19] MEDS ORDERED: DEXTROSE 50% 50 ML SYRINGE IV STA (09:02)
[2019-04-19] MEDS ORDERED: DEXTROSE 50% 50 ML SYRINGE IV ONE (09:15)
[2019-04-19] MEDS: FUROSEMIDE 40 MG/4 ML VIAL (J1940) IV SCH ×2 (09:23→21:11)
[2019-04-19] MEDS: SENNA 8.6 MG TAB (SENOKOT) PO SCH ×2 (09:23→21:11)
[2019-04-19] MEDS: DOCUSATE SODIUM 100 MG CAP PO SCH ×2 (09:23→21:11)
[2019-04-19] MEDS: SERTRALINE HCL 25 MG TABLET PO SCH (09:23)
[2019-04-19] MEDS: MIRALAX *UNIT DOSE* 17GM PACKET PO SCH (09:23)
[2019-04-19] MEDS: SIMVASTATIN 40 MG TAB PO SCH (09:23)
[2019-04-19] MEDS: DIGOXIN 0.0625MG PER 1/2TABLET PO SCH (09:24)
[2019-04-19] MEDS: NADOLOL 20MG TABLET PO SCH (09:27)
--- NOTE | 2019-04-19 13:13 | IPNPDOC ---
Subjective Date Seen The patient was seen on 04/19/19. Subjective Chief Complaint/HPI Says her left leg feels better and she is able to lift it up easily but her right leg still is very heavy and painful and swollen. No fever or chills, no chest pain or sob , no abdominal pain , nausea or vomiting. Says has not had a bowel movement morgan week and feels very constipated. Objective Physical Examination General Exam: Positive: Alert, Cooperative, No Acute Distress Eye Exam: Positive: PERRLA, Conjunctiva & lids normal, EOMI; Negative: Sclera icteric ENT Exam: Positive: Atraumatic, Mucous membr. moist/pink, Pharynx Normal Neck Exam: Positive: Supple; Negative: JVD, thyromegaly Chest Exam: Positive: Clear to auscultation, Normal air movement Heart Exam: Positive: Rate Normal, Regular Rhythm, Normal S1, Normal S2, Murmurs (soft systolic murmur); Negative: Rubs Abdomen Exam: Positive: Normal bowel sounds, Soft, Tenderness (in the irhgt inguinal region); Negative: Hepatospenomegaly Extremity Exam: Positive: Edema (4+ bilateral pitting edema right . left extending up to both thighs, lower abdominal wall , bothe buttocks upto midback), Swelling (extending from [place] legs upto the chest anteroirly and also on the back up to the lowere chest) Skin Exam: Positive: Nl turgor and temperature Assessment /Plan Assessment 83 year old female with PMH of PSVT, Cervical cancer at age 29 s/p JOSE L and BSO, Right inguinal hernia s/p excision on 03/14/19, chronic anemia, Diabetes with diabetic neuropathy, GERD, asthma, depression, restless leg syndrome, hypertension, hyperlipidemia, anxiety, esophageal web, urge incontinence, impaired hearing, h/o rheumatc fever as a child first presented to [place] ED from home for sudden difficulty in ambulating. [place] complained of bilateral leg swelling graudually increasing for 2 to 3 moths worse over the past month since she got the surgery in the right inguinal region and yesterday noted that the right leg was much more swollen than the left and much more red and painful and she could not bear any weight. She was admitted to the [facility] where she was found to have left femoral DVT and gross bilateral subcutaneous edema right much worse than left with a possible localization in [place] right inguinal region which could be just subcutaneous edea. She was evaluated by surgeon in [place] and he did not feel that there was any localized collection that needed to be drained. It was felt to tbe localized cellulitis. Patient was started on vanco and zosyn in the other hospital cultures were sent. She was also started on Therapeutic lovenox. Her Hb on admission was 8.5 this morning it dropped to 7.0. patient was given 1 unit of blood and was placed for transfer to our hospital for consideration of IVC filter placement for the possibility of ongoing bleeding and unable to use anticoagulation for the acute DVT. Patient was transferred here for further management. Patient o my interview complained of pain and swelling of the right leg maximum in the right groin with pain of about 6/10 with no radiation . It was sharp stretching type. She denied any bleeding from anywhere. Dr Cuellar agreed to place a IVC filter tomorrow. No cellulitis, No elevation of WBC, procalcitonin low 0.21 antibiotic stopped Leg swelling and erythema is due to massive edema and stasis rubor with some post surgical changes in the right groin. Left DVT Had IVC filter placed on 04/17/19 Anemia no overt bleeding. will check stool occult blood to evaluate for chronic GIB. patient does have chronic anemia possibly from CKD no iron def, no folate def and no Vit b12 def at present. received 1 unit of PRBC HH stable. will place on pantoprazole. will probably give a trial of anticoagulation prior to discharge. Anasarca due to hypoalbuminemia due to malnutrition No protein in UA so no nephrotic syndrome. 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 Creatinine may be appearing ot be falsely low due to fluid overload. will monitor creatinine as with successful diuresis the creatinine may go up. continue lasix. hold ACEI Hypertension will continue nadolol, hold ARB Diabetes getting recurrently hypoglycemic stopped glimiperide and insulin. follow hypoglycemic protocol. Hyperlipidemia statin. Depression sertraline Restless legs ropinirole PSVT patient on digoxin and nadolol at home will continue. Dig level 1.6 from [place]. Plan/VTE VTE Prophylaxis Ordered?: Yes VS, I&O, 24H, Fishbone Vital Signs/I&O Vital Signs Date Time Temp Pulse Resp B/P (MAP) Pulse Ox O2 Delivery O2 Flow Rate FiO2 04/19/19 09:27 69 122/56 04/19/19 02:00 97.9 18 97 Room Air 04/17/19 11:45 3 I&O- Last 24 Hours up to 6 AM 04/19/19 06:00 Intake Total 1500 ml Balance 1500 ml Laboratory Data 24H LABS Laboratory Tests 2 04/18/19 15:51: Urine Total Volume (Protein) 1800, Urine Total Protein 24 Hour 504.0H, Urine Total Protein 28.0H 04/18/19 17:17: Bedside Glucose (Misc Panel) 42L 04/18/19 17:35: Bedside Glucose Confirm (Misc) 74 04/18/19 17:46: Bedside Glucose (Misc Panel) 82L 04/18/19 20:31: Bedside Glucose (Misc Panel) 90 04/19/19 06:11: Nucleated Red Blood Cells % (auto) 0.0, Anion Gap 9, Glomerular Filtration Rate 23.4L, Calcium Level 8.9 04/19/19 08:18: Bedside Glucose (Misc Panel) 56L 04/19/19 09:25: Bedside Glucose (Misc Panel) 249H 04/19/19 11:18: Bedside Glucose (Misc Panel) 241H CBC/BMP Laboratory Tests 04/19/19 06:11 MAREK ANTUNEZ MD Apr 19, 2019 13:13
[2019-04-19 14:00] VITALS: BP 137/45
[2019-04-19] MEDS: GASTROGRAFIN SOLUTION 30ML PO SCH ×2 (14:03→14:34)
--- NOTE | 2019-04-19 14:34 | IPN ---
DATE: 04/19/2019 Mrs. Ruvalcaba is seen this morning on her bedside. She is being treated for generalized anasarca and acute kidney injury. She has a history of deep vein thrombosis (DVT) in her left leg and also had lymph node resection from her right groin area recently. The patient denies any dyspnea or chest pain. The patient is sitting in the chair at the time of my visit. She denies any dyspnea or chest pain. She still has lower body edema. PHYSICAL EXAMINATION: Temperature 97.9 degrees Fahrenheit, heart rate 70 per minute and respiratory rate 18 per minute. Blood pressure 122/56 mmHg and oxygen saturation 97% on room air. Head is atraumatic. Neck is supple and without jugular venous distention (JVD) or thyroid enlargement. I removed the dressing from right side of her neck where she had central line placed. Her lungs have diminished breath sounds at right lower half. Basilar rales are audible bilaterally. Heart sounds are regular. Back has presacral edema. Lower extremities have significant edema up to her waist. There is no cyanosis or clubbing. Neurologically, she is awake, alert and oriented times three. Today's labs show WBC count 12.5, hemoglobin 9.2 and hematocrit 31.1. Platelets 260. Sodium 130, potassium 4.0, CO2 of 27, BUN 51 and creatinine 2.13. Glucose was 37 and calcium 8.9. A fingerstick blood sugar at 8:18 a.m. was 56 and then 9:25 a.m. it was 249. PROBLEMS: 1. Acute kidney injury superimposed on chronic kidney disease. The patient has worsening kidney function while she is being diuresed. She has a history of recent DVT in her left thigh and has an inferior vena cava (IVC) filter in place. I am concerned about possibility of renal vein thrombosis and will get a renal Doppler flow study. 2. Generalized edema. Her volume status is still decompensated, though she is not short of breath. She does not have any imaging done here since admission. We will get a chest x-ray to rule out any possibility of pleural effusion and continue with diuresis for now. She has significant edema on her lower body, which is extending up to her waist. I do not feel that this is all related to lymph node resection in her right groin and DVT in her left thigh. 3 Anemia. Her anemia is mild and stable and does not need any intervention at present. 4. Hypoglycemia. The patient did have hypoglycemia this morning. However, it has already improved and resolved. She is currently asymptomatic.
[2019-04-19] MEDS: rOPINIRole 1MG TAB PO SCH (21:11)
[2019-04-19 22:00] VITALS: BP 120/57
[2019-04-20 06:00] VITALS: BP 128/53
[2019-04-20 07:11] LABS: HEMATOCRIT 29.2 % (36.0-47.0); HEMOGLOBIN 8.6 g/dl (12.0-15.5); MEAN CORPUSCULAR HEMOGLOBIN 23.4 pg (27.0-33.0); MEAN CORPUSCULAR HGB CONC 29.5 g/dl (32.0-36.5); MEAN CORPUSCULAR VOLUME 79.3 fl (80.0-96.0); PLATELET COUNT, AUTOMATED 207 10^3/uL (150-450); RED BLOOD COUNT 3.68 10^6/uL (4.00-5.40); WHITE BLOOD COUNT 10.9 10^3/uL (4.0-10.0)
[2019-04-20 07:29] LABS: CALCIUM LEVEL 8.4 MG/DL (8.8-10.2); CREATININE FOR GFR 2.25 MG/DL (0.55-1.30); POTASSIUM SERUM 4.2 MEQ/L (3.5-5.1)
--- NOTE | 2019-04-20 07:40 | REP ---
CHEST AP LATERAL: 04/19/2019. CLINICAL HISTORY: Pleural effusion. FINDINGS: There are no prior pertinent studies. Lung dominguez are well inflated. There is no pleural effusion, lateral pleural thickening, or apical scarring. I see no pneumothorax or pneumomediastinum. Heart size upper limits normal allowing for AP portable technique. Calcified aortic arch with mild tortuosity but no aneurysm. There is left atrial enlargement with elevation of the mainstem bronchus on the left. No widening of the mediastinum. Airway intact. Bones with some demineralization, degenerative change. No compression deformity in the spine. IMPRESSION: 1. No infiltrate, effusion, edema, or mass. 2. Left atrial enlargement, borderline heart size, no ramesh edema. Electronically Signed by Jaron De La Torre MD 04/20/2019 08:10 A
--- NOTE | 2019-04-20 07:54 | REP ---
CT ABDOMEN/PELVIS WITH ORAL CONTRAST ONLY: 04/19/2019. CLINICAL HISTORY: Severe constipation, abdominal distension. 2 days status post vena cava filter placement. She has contraindication to anticoagulation in the setting of DVT. TECHNIQUE: Oral Gastrografin 10 mL in 290 mL flavored water for two doses per our bowel contrast protocol with scanning through the abdomen/pelvis and both coronal and sagittal reconstructions provided. CT ABDOMEN: Lung bases are clear without effusion or infiltrate. No pulmonary nodules seen. Heart size not grossly enlarged. There is no pericardial thickening or effusion. There is some coronary artery and aortic root calcifications evident. The descending thoracic aortic calcifications are seen. No gross hiatal hernia. Stomach collapsed, only small amount of oral contrast remaining in it. There is no hepatosplenomegaly, focal hepatic or splenic mass, nor intrahepatic biliary dilatation. Gallbladder partially contracted. There is mild to moderate stool in the right colon, moderate stool in the transverse and left colon with scattered diverticulosis in the left colon without diverticulitis. Small bowel loops with oral contrast and fluid but no dilatation or air-fluid levels. Contrast reaches the cecum and right colon. 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 No ascites. Adrenal glands show thickening of limbs suggesting adrenal hyperplasia. Kidneys show hydronephrosis bilaterally, left slightly worse than right. There is hydroureter down to the level of the deep pelvis. No definite stone in either kidney or the ureters. There is significant atrophy of the cortex of the left kidney with the right kidney normal showing compensatory hypertrophy. No perinephric edema. Ureters are lost in the central pelvis adjacent to the vaginal cuff and iliac vessels. There is a calcified atherosclerotic aorta without aneurysm. No pathologic-sized periaortic or retroperitoneal lymphadenopathy. There is a vena cava filter just below the right renal vein in the IVC. No perforation or free air evident. There is no generalized ascites. The bone windows show degenerative disc changes with vacuum phenomenon and narrowing of the L5-S1 disc space. There is a S1-2 disc space. No compression deformities are noted. Facet arthropathy seen without spondylolysis or spondylolisthesis. Thoracic levels show marginal osteophytes. CT PELVIS: Status post hysterectomy. Distal ureters dilated near the level of the vaginal cuff which has confluent density pelvic sidewall to sidewall. Bladder wall is thickened. There is a Jeffries catheter in the bladder, which is collapsed. Distal left colon and sigmoid with moderate stool and the rectal vault contains larger volumes of stool. In addition, in the right inguinal region, there are two fluid collections. A more superficial one up to 5.8 cm which is lower density and more moderate density complex fluid about [address] attenuation of 27 HU. Both of these may related to the previous punctures of the femoral vessels. There is infiltration and edema around that right hemipelvis and, to a lesser extent, the left that may all be related to hematoma. There is not a generalized anasarca in the abdomen and flank. There is no ventral hernia and no definite inguinal hernia. No left inguinal mass. There is a left inguinal lymph node about 10 mm in short axis with other subcentimeter nodes in that region. IMPRESSION: 1. Vena cava filter in the IVC just below the right renal vein. 2. Bilateral hydronephrosis, left greater than right, without renal stone or gross mass. Ureters dilated down to the pelvis at the level of the vaginal cuff with confluent density there pelvic sidewall to sidewall. 3. Bladder wall thickening with a Jeffries catheter in place. 4. There are two complex lesions in the right inguinal region; more superficially, a 5.8 cm fluid lesion with low attenuation of 9 HU and deeper to this, a smaller 4 cm focus with 27 HU density that could be hemorrhagic fluid. Generalized edema around the right hemipelvis centered at that groin and minimally on the left without abdominal generalized anasarca to a similar degree. I suspect these may be hematomas. 5. Moderate constipation left colon to rectosigmoid, worst in the rectum. Mild to moderate stool in the transverse and right colon. No obstruction. 6. 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 Electronically Signed by Jaron De La Torre MD 04/20/2019 08:13 A
--- NOTE | 2019-04-20 08:31 | CR ---
DATE OF CONSULTATION: 04/18/2019 REQUESTING PHYSICIAN: Dr. Chel Vargas CONSULTING PHYSICIAN: Dr. Nissa Berry REASON FOR CONSULTATION: Acute kidney injury. HISTORY OF PRESENT ILLNESS: Kristin Gilbert is unknown to me. She is a 83-year-old female who is being hospitalized at [facility] for the first time and there is no prior records available for review. Reports a past medical history of remote cervical cancer in her early 30s, status post total abdominal hysterectomy and bilateral salpingo-oophorectomy, diabetes with diabetic neuropathy and nephropathy, chronic kidney disease stage III, borderline stage IV, gastroesophageal reflux disease, asthma, depression, restless leg syndrome, hypertension, dyslipidemia, history of rheumatic fever as a child, and other comorbid conditions mentioned below. The patient was transferred from [place] to [facility] for management of acute deep vein thrombosis (DVT) in the left femoral and consideration of IVC filter placement. She presented to [place] ER with complaint of difficulty in ambulation and progressive worsening bilateral leg swelling right more so than left over the past 2-3 months. She reports that it first started when she had what sounds like a lymph node removal in the right inguinal region. The patient is unable to give me further details regarding the surgery and why it was done; however, she notes that her right leg has gotten progressively more and more swollen since then and it was getting difficult for her to ambulate and bear weight. At the [place] ER, she was found have a left femoral DVT and gross leg edema with the right much more so than the left. She was started on Lovenox but had a drop in her hemoglobin. She was transfused 1 unit of blood and was transferred to [facility] for further evaluation and treatment. She had an IVC filter placed at [facility] on April 17 and she was started on IV diuretics and her renal function deteriorated with a creatinine on admission being 1.5 and presently up to 1.9, and a nephrology evaluation was subsequently requested. PAST MEDICAL HISTORY: 1. Paroxysmal supraventricular tachycardia (PSVT). 2. Cervical cancer in her 30s status post total abdominal hysterectomy and bilateral salpingo-oophorectomy. 3. Surgery in the right inguinal region which the patient tells me lymph nodes were removed, however chart review said she had a hernia operation. 4. Chronic anemia. 5. Diabetes with diabetic nephropathy and neuropathy. 6. Chronic kidney disease stage III to stage IV. 7. Asthma. 8. Depression. 9. Restless leg syndrome. 10. Hypertension. 11. Dyslipidemia. 12. Anxiety. 13. Esophageal web. 14. Urge incontinence. 15. Impaired hearing. 16. History of rheumatic fever in childhood. PAST SURGICAL HISTORY: Appendectomy. Total abdominal hysterectomy bilateral salpingo-oophorectomy. Bilateral cataract. Neck surgery. Most recently right inguinal surgery which was related to either hernia or lymph nodes, the patient is not clear. ALLERGIES: No known drug allergies. FAMILY HISTORY: Diabetes in her mother. SOCIAL HISTORY: No smoking, alcohol or drugs. HOME MEDICATIONS: - ascorbic acid 1000 mg by mouth daily - digoxin 125 mcg by mouth every other day alternating with 62.5 mg every other day - glimepiride 4 mg by mouth daily - Bacid one tablet by mouth daily - nadolol 20 mg by mouth daily - ropinirole 0.5 mg at bedtime - sertraline 25 mg by mouth daily - simvastatin 40 mg by mouth daily - valsartan 320 mg by mouth daily REVIEW OF SYSTEMS: CONSTITUTIONAL: She denies fevers or chills. EYES: She denies pain or vision changes. ENT: She reports headache. She denies rhinorrhea. SKIN: She reports redness in the right groin. She denies pruritus. PULMONARY: She denies dyspnea or cough. CARDIAC: She reports leg swelling, right more than left. She denies chest pain. She has a history of arrhythmia. GASTROINTESTINAL (GI): She denies nausea, vomiting, diarrhea. GENITOURINARY: She reports no dysuria or hematuria. HEMATOLOGIC: She reports anemia and blood clots. MUSCULOSKELETAL: She reports bilateral leg swelling and difficulty with ambulation. ENDOCRINE: She reports diabetes. She denies thyroid issues. NEUROLOGIC: She denies seizure or syncope. PSYCHIATRIC: She reports anxiety and depression. Remainder review of systems is negative or as per HPI. PHYSICAL EXAMINATION: Vital signs: Temperature 98.1, pulse 64, respiratory rate 16, blood pressure 124/66, saturating 94% on room air. Intake yesterday was 620, urine output was 1950, net negative 1330, weight on the bed scale today 77.6 kg. General: The patient is seen lying in bed awake, alert, oriented times three, comfortable in no apparent distress. Head is atraumatic. Extraocular muscles are intact. Neck is supple. Jugular veins were not elevated. Cardiac: S1-S2 regular rate. 3+ edema in the right lower extremity and 1+ edema in the left lower extremity. Lungs have symmetric air entry though diminished at the bases. There is no accessory muscle use or tachypnea. Abdomen is soft and nontender. There are bowel sounds. Extremities show incision in the right inguinal region which is healed and 3+ edema on the right and 1+ edema on the left. There is no upper extremity edema. Neurologic: She is oriented times three. No focal deficit. Genitourinary: Shows Jeffries catheter with urine. Psychiatric: Appropriate mood and affect. LABORATORIES: Sodium 135, potassium 4.3, bicarbonate 26, BUN 42, creatinine 1.9, hemoglobin 8.9, platelet 250. Urinalysis shows negative protein. Microbiology: Stool occult blood is pending. Echocardiogram shows preserved left ventricular ejection fraction and normal IVC diameter. INPATIENT MEDICATIONS: - Tylenol as needed - Lasix 40 mg IV every 8 hours - digoxin 0.625 mcg every other day and 0.125 mcg every other day - glimepiride 2 mg by mouth daily - nadolol 20 mg by mouth daily - ropinirole 1 mg by mouth every evening - Senokot 1 tablet by mouth twice a day - Zoloft 25 mg by mouth daily - simvastatin 40 mg by mouth daily PROBLEMS: 1. Acute kidney injury (RACHEL) superimposed on CKD stage III borderline stage IV. Exact baseline creatinine is unknown to me. Will try and get the prior records. She has had worsening kidney function while she is being diuresed. Her echocardiogram on this admission showed normal IVC diameter with estimated normal central venous pressure. She may have localized edema in the right leg related to her inguinal surgery. She tells me she had lymph nodes removed. Her edema is quite asymmetric and much more pronounced in the right leg and it may be due to the surgery and disruption of the lymphatics. Her left lower extremity edema by comparison is quite mild and probably related to the acute DVT. Given her echocardiogram findings, I do not feel that she needs to be aggressively diuresed. I am adding a BNP onto the labs and we will get renal imaging. Her urinalysis is negative for any protein and I do not feel that she is systemically volume overloaded. I know she also had some mild hyponatremia with diuretic administration, which should not be the case if she was in ramesh volume overload. 2. Left femoral DVT status post IVC filter on April 17. Her acute kidney injury may also be related to extensive DVT. I do not see any Doppler studies available in our records. 3. Diastolic congestive heart failure. Echocardiogram noted. Preserved left ventricular ejection fraction. Normal inferior vena cava diameter with estimated normal CVP. 4. Acute kidney injury with aggressive diuretic. Lasix is being cut down she may benefit with albumin with Lasix given her significant hypoalbuminemia. 5. Hypertension. Blood pressures are acceptable. Her angiotensin receptive sravan is discontinued in view of acute kidney injury. Thank you for involving me in the care of Ms. Kristin Gilbert. I will be happy to follow her along with you.
--- NOTE | 2019-04-20 10:48 | REP ---
BILATERAL LOWER EXTREMITY DOPPLER VENOUS ULTRASOUND: 04/20/2019 CLINICAL HISTORY: Lower extremity swelling. IVC filter in place. Evaluate for DVT. FINDINGS: No prior study. The left lower extremity shows nonocclusive thrombus from the common femoral vein to the proximal mid aspect of the femoral vein in the thigh. Distal femoral vein and popliteal vein are intact. There is respiratory variation and augmentation from that mid femoral vein through the popliteal vein. Color flow without augmentation is maintained in the more proximal femoral vein and common femoral vein. The right lower extremity was quite limited due to extensive edema. The patient unable to turn her leg or assume decubitus position. Occlusive thrombus was seen in the right common femoral vein as well as in the proximal and mid femoral vein. The distal femoral vein was not visible. The popliteal vein shows occlusive thrombus. No color flow was seen in these vessels. As an incidental finding, but corresponding to CT exam yesterday, there is a 6.7 x 4.1 x 2.9 cm complex fluid collection in the right groin, consistent with hematoma. IMPRESSION: 1. There is occlusive thrombus throughout the deep venous system of the right lower extremity from the common femoral vein through the mid femoral vein and then again in the popliteal vein. The distal right femoral vein is not visible due to edema and the patient's inability to turn leg or assume decubitus position. 2. There is a complex fluid collection representing right groin hematoma 6.7 x 4.1 cm. 3. Nonocclusive thrombus in the left lower extremity from the common femoral vein to the mid femoral vein in the thigh. Remainder of the left deep venous system was intact. Electronically Signed by Jaron De La Torre MD 04/20/2019 11:03 A
[2019-04-20] MEDS: SENNA 8.6 MG TAB (SENOKOT) PO SCH ×2 (10:58→22:55)
[2019-04-20] MEDS: SIMVASTATIN 40 MG TAB PO SCH (10:58)
[2019-04-20] MEDS: FUROSEMIDE 40 MG/4 ML VIAL (J1940) IV SCH ×2 (10:58→22:56)
[2019-04-20] MEDS: DOCUSATE SODIUM 100 MG CAP PO SCH ×2 (10:58→22:55)
[2019-04-20] MEDS: SERTRALINE HCL 25 MG TABLET PO SCH (10:59)
[2019-04-20] MEDS: NADOLOL 20MG TABLET PO SCH (11:00)
[2019-04-20] MEDS: DIGOXIN 0.125 MG TAB PO SCH (11:00)
[2019-04-20] MEDS: MIRALAX *UNIT DOSE* 17GM PACKET PO SCH (11:01)
--- NOTE | 2019-04-20 11:41 | REP ---
RENAL ULTRASOUND RENAL DOPPLER VASCULAR ULTRASOUND: 04/20/2019. CLINICAL HISTORY: Acute renal failure. Evaluate for renal vein thrombosis or other vascular abnormality. Extensive lower extremity DVT. IVC filter in place. FINDINGS: RENAL ULTRASOUND: The right kidney is 10.5 x 4.6 x 5.3 cm. Cortical echogenicity and thickness appear grossly normal. There are echogenic vessels in the renal hilum. There is mild hydronephrosis and mild proximal hydroureter on that right side. I see no stone, cyst, or perinephric fluid. The left kidney is 9.2 x 4.1 x 4.3 cm. Cortical echogenicity and thickness are normal. There are echogenic vessels in the renal hilum. There is moderate to severe hydronephrosis involving the left kidney and into the proximal and mid left ureter. Beyond that, the ureter is not seen. Bladder was not well distended as the patient has a Jeffries catheter. There appears to be some echogenic material in the bladder, but this is difficult to assess. IMPRESSION: 1. Mild hydronephrosis and hydroureter on the right and moderate to severe hydronephrosis and hydroureter on the left. The left ureter seen in its proximal and midcourse, the right ureter only proximally but both ureters then obscured by gas shadowing. 2. Cortical thickness and echogenicity are normal. 3. Bladder not well distended and, therefore, not well evaluated. Jeffries catheter in place. RENAL DOPPLER VASCULAR ULTRASOUND: The right kidney has a length of 10.5 cm. Peak renal artery velocity 125 cm/s. Peak aortic velocity 150 cm/s. Renal aortic ratio 0.8. Doppler tracings of the right renal artery show resistive index 0.77 upper, 0.57 mid, and 0.79 lower pole. Acceleration time 0.06 sec upper, 0.03 sec mid, and 0.05 sec lower pole. The right main renal vein is seen with color flow and Doppler tracing throughout its course from mid aspect through the hilum. Its junction with the IVC is not optimally visualized. Left kidney 9.2 cm. The left renal artery and renal vein are not seen due to edema and patient's inability to suspend respirations. This is a nondiagnostic examination on the left. IMPRESSION: 1. Limited examination. Left renal artery and renal vein are not seen due to edema and inability to suspend respiration and, therefore, exam is nondiagnostic on the left. 2. The right main renal vein shows color flow and Doppler tracing throughout its mid course to the hilum. Its junction with the IVC is not well seen. Doppler tracings of the main renal artery show no evidence of stenosis. Electronically Signed by Jaron De La Torre MD 04/20/2019 05:04 P
[2019-04-20] MEDS ORDERED: HEPARIN SOD (PORCINE) 5000 UNITS/ML VIAL IV PRN (11:45)
--- NOTE | 2019-04-20 12:21 | IPNPDOC ---
Subjective Date Seen The patient was seen on 04/20/19. Subjective Chief Complaint/HPI Right leg continues to be tensely swollen and painful , difficult to move difficult to lift up. There is some seeping of fluid from the skin. No fever or chills, no chest pain or sob, no abdominal pain. Had a good bowel movement yesterday. Objective Physical Examination General Exam: Positive: Alert, Cooperative, No Acute Distress Eye Exam: Positive: PERRLA, Conjunctiva & lids normal, EOMI; Negative: Sclera icteric ENT Exam: Positive: Atraumatic, Mucous membr. moist/pink, Pharynx Normal Neck Exam: Positive: Supple; Negative: JVD, thyromegaly Chest Exam: Positive: Clear to auscultation, Normal air movement Heart Exam: Positive: Rate Normal, Regular Rhythm, Normal S1, Normal S2, Murmurs (soft systolic murmur); Negative: Rubs Abdomen Exam: Positive: Normal bowel sounds, Soft, Tenderness (in the irhgt inguinal region); Negative: Hepatospenomegaly Extremity Exam: Positive: Edema (4+ bilateral pitting edema right . left extending up to both thighs, lower abdominal wall , bothe buttocks upto midback), Swelling (extending from jamee legs upto the chest anteroirly and also on the back up to the lowere chest) Skin Exam: Positive: Nl turgor and temperature Assessment /Plan Assessment 83 year old female with PMH of PSVT, Cervical cancer at age 29 s/p JOSE L and BSO, Right inguinal hernia s/p excision on 03/14/19, chronic anemia, Diabetes with diabetic neuropathy, GERD, asthma, depression, restless leg syndrome, hypertension, hyperlipidemia, anxiety, esophageal web, urge incontinence, impaired hearing, h/o rheumatc fever as a child first presented to [place] ED from home for sudden difficulty in ambulating. [place] complained of bilateral leg swelling graudually increasing for 2 to 3 moths worse over the past month since she got the surgery in the right inguinal region and yesterday noted that the right leg was much more swollen than the left and much more red and painful and she could not bear any weight. She was admitted to the [facility] where she was found to have left femoral DVT and gross bilateral subcutaneous edema right much worse than left with a possible localization in jamee right inguinal region which could be just subcutaneous edea. She was evaluated by surgeon in [place] and he did not feel that there was any localized collection that needed to be drained. It was felt to be localized cellulitis. Patient was started on vanco and zosyn in the other hospital cultures were sent. She was also started on Therapeutic lovenox. Her Hb on admission was 8.5 this morning it dropped to 7.0. patient was given 1 unit of blood and was placed for transfer to our hospital for consideration of IVC filter placement for the possibility of ongoing bleeding and unable to use anticoagulation for the acute DVT. Patient was transferred here for further management. Patient o my interview complained of pain and swelling of the right leg maximum in the right groin with pain of about 6/10 with no radiation . It was sharp stretching type. She denied any bleeding from anywhere. Dr Cuellar agreed to place a IVC filter. Bilateral DVTs New Right sided occlusive dvt on 04/19/19 from the common femoral to the popliteal veins. stool occult blood is negative. Left DVT noted first on the 04/15/19 then there was no right sided dvt seen. Had IVC filter placed on 04/17/19 will sent hypercoagulable work up. will start on heparin infusion. consult vascular surgery RACHEL on CKD stage 3 due to obstructive uropathy Has bilateral hypdonephrosis inspite of having jara in place suggestive of bilateral ureteral obstructions. Will consult Urology CT pelvis suggestive of confluence around vaginal cuff from pelvic wall to pelvic wall. She has a history of cervical cancer for which she had JOSE L and BSO and also radiation. continue lasix. hold ACEI /ARB Anemia stool occult blood negative. no overt bleeding. patient does have chronic anemia possibly from CKD no iron def, no folate def and no Vit b12 def at present. received 1 unit of PRBC will monitor hh will place on pantoprazole. Anasarca improve less swelling of the back. hypoalbuminemia due to malnutrition she also has bilateral DVTs which is causing the severe edema of both the legs right greater than left. No protein in UA so no nephrotic syndrome. echo reviewed no good EF, grade 1 diastolic dysfunction, no valvular abnormalities , no pulmonary HTn continue with diuresis. Hypertension will continue nadolol, hold ARB Diabetes getting recurrently hypoglycemic stopped glimiperide and insulin. follow hypoglycemic protocol. Hyperlipidemia statin. Depression sertraline Restless legs ropinirole PSVT patient on digoxin and nadolol at home will continue. Dig level 1.6 from [place]. will recheck level. Plan/VTE VTE Prophylaxis Ordered?: Yes VS, I&O, 24H, Fishbone Vital Signs/I&O Vital Signs Date Time Temp Pulse Resp B/P (MAP) Pulse Ox O2 Delivery O2 Flow Rate FiO2 04/20/19 11:00 77 124/55 04/20/19 06:00 98.1 16 95 Room Air 04/17/19 11:45 3 I&O- Last 24 Hours up to 6 AM 04/20/19 06:00 Intake Total 1270 ml Output Total 875 ml Balance 395 ml Laboratory Data 24H LABS Laboratory Tests 2 04/19/19 16:21: Bedside Glucose (Misc Panel) 129H 04/19/19 21:06: Bedside Glucose (Misc Panel) 224H 04/20/19 06:56: Nucleated Red Blood Cells % (auto) 0.0, Anion Gap 7L, Glomerular Filtration Rate 22.0L, Calcium Level 8.4L 04/20/19 07:39: Bedside Glucose (Misc Panel) 130H CBC/BMP Laboratory Tests 04/20/19 06:56 Microbiology Microbiology 04/19/19 Stool Occult Blood (KASEY) - Final, Complete MAREK ANTUNEZ MD Apr 20, 2019 12:21
[2019-04-20 12:48] LABS: HEMATOCRIT 28.7 % (36.0-47.0); HEMOGLOBIN 8.7 g/dl (12.0-15.5)
[2019-04-20 13:00] LABS: INR 1.17; PROTHROMBIN TIME 14.6 SECONDS (11.8-14.0)
[2019-04-20 13:01] LABS: PARTIAL THROMBOPLASTIN TIME 28.8 SECONDS (25.0-38.4)
[2019-04-20 13:24] LABS: DIGOXIN LEVEL 1.4 NG/ML (0.5-2.0); PERCENT SATURATION 6.9 % (13.2-45.0)
[2019-04-20 14:00] VITALS: BP 111/43
--- NOTE | 2019-04-20 14:06 | IPN ---
DATE OF VISIT: 04/20/2019 Mrs. Ruvalcaba is seen this morning on her bedside. Her granddaughter is visiting her. The patient is feeling about the same. She underwent a CT scan of abdomen and pelvis yesterday due to her worsening acute renal failure. She was found to have bilateral hydronephrosis and hydroureter without any stone identified in the ureters. A pelvic mass was suspected. On physical exam, temperature is 98 degrees Fahrenheit, heart rate 76 per minute, and respiratory rate 16 per minute. Blood pressure 124/55 mmHg, and oxygen saturation 95% on room air. Head is atraumatic. Neck is supple and without jugular venous distention (JVD) thyroid enlargement. Heart sounds regular, and lungs clear to auscultation. Abdomen soft and nontender. Lower abdominal wall area edema is present. On the back, she also has significant sacral area edema. Extremities have no cyanosis or clubbing. Lower extremity edema is 3+ bilaterally. Neurologically, she is awake, alert, and oriented times three. Today's labs show WBC count 10.9, hemoglobin 8.6, and hematocrit 29.2. Sodium 134, potassium 4.2, CO2 28, BUN 61, and creatinine 2.25. Glucose 82 and calcium 8.4. PROBLEMS: 1. Acute renal failure superimposed on chronic kidney disease. Kidney function is only slightly worse than yesterday. She has bilateral hydronephrosis and hydroureter. I would recommend urology evaluation for possible cystoscopy and ureteral stent placement. She most likely has either bladder or other pelvic malignancy. She does have history of cervical cancer in remote past. 2. Generalized anasarca. Most likely related to bilateral hydronephrosis with renal failure. At this point, she is being diuresed and does have good urine output. We will continue with diuretic for now. I would recommend that Urology try to get a cystoscopy done quickly and possible ureteral stents if possible. If not, then she will need bilateral nephrostomy tube placement. 3. Anemia. Her anemia is slightly worse than yesterday. We will check her iron studies and consider giving her iron if needed. I will hold off on Aranesp use.
[2019-04-20] MEDS: HEPARIN DRIP 25,000 UNITS in IV 1 EA IV SCH (14:35)
[2019-04-20] MEDS: traMADol 50 MG TAB PO PRN (15:14)
--- NOTE | 2019-04-20 15:37 | SMCUROLCON ---
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 She is s/p TVH for cervical cancer many decades ago, which was followed by XRT. She has AODM. An IVC filter was placed on 04/19 with injection of IV contrast. She has been on lasix as well, in an attempt to manage anasarca and massive RLE edema. Creatinine has risen from 1.99 on admission to 2.25 today. Urine outputs for the past few days have been 1725, 1950, 325(not thought to be complete) and 900ml so far today. Admission U/A showed pyruia and microhematuria, but no cultures were done as the pt was previously on IV antibiotics at [facility]. CT films from [facility] and here are reviewed which show L>R hydronephrosis with a small L kidney - suspicious for chronic L hydronephrosis. There is a calcific density in the bladder and a catheter is in place on the more recent study. A fairly larger fecal impaction is noted. The patient denies previous urinary problems with infections or stones. She has had no flank pain. Her main complaint is of massive RLQ swelling and discomfort. She has just been started on heparin drip. She denies dyspnea or chest pain. BNP 2393. Past Medical History Medical History AODM, DVT, Cervical cancer, Cardiac dysrhythmia PSVT, DVT, dyslipidemia, Depression; Anemia; Asthma, Diabetic retinopathy, Hearing loss; Urge incontinence; HTN Surgical Hstory JOSE L/BSO; R inguinal node biopsy; IVC filter placement; [place]; Cataracts; Neck procedure Family History Significant Family History: Diabetes Social History Social History Her daughter lives with her * Smoker: non-smoker Alcohol: Denies Drugs: denies Medications Current Medications Current Medications Medications (Trade) Dose Ordered Sig/Arsalan Route PRN Reason Start Time Stop Time Status Last Admin Dose Admin Acetaminophen (Tylenol Tab) 1,000 mg Q8HP PRN PO PAIN / FEVER 04/17/19 13:30 04/20/19 11:01 Apixaban (Eliquis) 10 mg BID PO 04/16/19 21:00 04/16/19 16:33 DC Ceftaroline Fosamil 600 mg/ Dextrose 50 ml @ 50 mls/hr Q12H IV 04/16/19 18:00 04/17/19 22:03 DC 04/17/19 17:17 Dextrose (Dextrose 50%) 25 ml ASDIRECTED PRN IV SEE LABEL COMMENTS 04/16/19 15:00 04/20/19 07:03 Dextrose (Dextrose 50%) 50 ml STAT STAT IV 04/19/19 09:02 04/19/19 09:03 UNV Diatrizoate Meglum/ Diatrizoate Sod (Gastrografin) 10 ml Q30M PO 04/19/19 13:45 04/19/19 14:16 DC 04/19/19 14:34 Digoxin (Lanoxin) 0.0625 mg Q2D PO 04/17/19 09:00 04/19/19 09:24 Digoxin (Lanoxin) 0.125 mg Q2D PO 04/18/19 09:00 04/20/19 11:00 Docusate Sodium (Colace) 100 mg BID PO 04/16/19 21:00 04/20/19 10:58 Furosemide (LASIX injection) 40 mg BID IV 04/18/19 21:00 04/20/19 10:58 Furosemide (LASIX injection) 40 mg Q8H IV 04/16/19 16:00 04/18/19 14:36 DC 04/18/19 09:24 Glimepiride (Amaryl) 2 mg DAILY@0730 PO 04/19/19 07:30 04/18/19 18:16 DC Glimepiride (Amaryl) 4 mg DAILY@0730 PO 04/17/19 07:30 04/18/19 12:01 DC 04/18/19 09:21 Glucagon (Glucagon) 1 mg ASDIRECTED PRN SC SEE LABEL COMMENTS 04/16/19 15:00 Glucose (Glucose) 16 GM ASDIRECTED PRN PO SEE LABEL COMMENTS 04/16/19 15:00 Heparin Sodium (Porcine) (Heparin) ASDIRECTED PRN IV SEE LABEL COMMENTS 04/20/19 11:45 Heparin Sodium (Porcine) 84751 units/IV Miscellaneous Supplies 250 ml @ 0 mls/hr Q0M IV 04/20/19 11:41 04/20/19 14:35 Home Med (Med Rec Complete!) ASDIRECTED XX 04/16/19 15:45 04/16/19 15:40 DC Insulin Human Lispro (HumaLOG INSULIN) See Protocol Table AC SC 04/16/19 17:30 04/18/19 18:16 DC Insulin Human Lispro (HumaLOG INSULIN) See Protocol Table QHS SC 04/16/19 21:00 04/18/19 18:16 DC Nadolol (Corgard) 20 mg DAILY PO 04/17/19 09:00 04/20/19 11:00 Non-Formulary Medication (Heparin Iv Rate Change Documentation ml/ Hr) ASDIRECTED XX 04/20/19 11:45 04/25/19 11:44 Polyethylene Glycol (Miralax) 1 pkt DAILY PO 04/18/19 09:00 04/20/19 11:01 Ropinirole HCl (Requip) 1 mg QHS PRN PO RESTLESSNESS 04/16/19 21:15 04/16/19 21:19 DC Ropinirole HCl (Requip) 1 mg QHS PRN PO RESTLESSNESS 04/16/19 21:19 Ropinirole HCl (Requip) 1 mg QPM PO 04/16/19 21:00 04/19/19 21:11 Senna (Senokot) 1 tab BID PO 04/18/19 09:00 04/20/19 10:58 Sertraline HCl (Zoloft) 25 mg DAILY PO 04/17/19 09:00 04/20/19 10:59 Simvastatin (Zocor) 40 mg DAILY PO 04/17/19 09:00 04/20/19 10:58 Tramadol HCl (Ultram) 50 mg Q8HP PRN PO MODERATE PAIN (PS 5-7) 04/17/19 13:30 Valsartan (Diovan) 320 mg DAILY PO 04/17/19 09:00 04/16/19 20:52 DC Allergies Allergies: Coded Allergies: No Known Allergies (Verified Allergy, Unknown, 04/16/19) Review of Systems General: Reports: Fatigue, Malaise, Normal Appetite; Denies: Chills, Night Sweats Constitutional: Reports: Malaise; Denies: Fever, Chills, Sweats, Weakness Eyes: Denies: Pain, Vision change ENT: Denies: Head Aches, Ear Pain Skin: Denies: Rash, Lesions Pulmonary: Denies: Dyspnea, Cough, Pleuritic Chest Pain Cardiovascular: Denies Chest Pain, Denies Palpitations; Reports Edema Gastrointestinal: Denies: Nausea, Vomiting, Abdominal Pain Genitourinary: Reports: Incontinence (urge); Denies: Dysuria, Frequency, Hematuria Hematologic: Denies: Bruising, Bleeding Excessively Endocrine: Denies: Polydipsia, Polyphagia, Polyuria, Heat Intolerance Musculoskeletal: Denies: Neck Pain, Back Pain Neurological: Reports: Weakness; Denies: Numbness, Incoordination, Change in Speech, Confusion Psych: Reports: Mood Normal, Depression; Denies: Anxiety Physical Examination General Exam: Alert, Cooperative, Mild Distress; No: No Acute Distress EYE EXAM: PERRLA, Conjunctiva & lids normal, EOMI ENT EXAM: Atraumatic, Mucous membr. moist/pink, Other ENT (poor hearing) Neck Exam: Supple Chest Exam: Clear to auscultation, Normal air movement Heart Exam: Rate Normal, Regular Rhythm Abdomen Exam: Normal Bowel Sounds, Soft, Tenderness Female Exam: Nl Ext Genitalia Female Exam jara with clear urine Extremity Exam: Edema, Tenderness, Swelling; No: Clubbing Skin Exam: Other skin issue Neuro Exam: Normal Speech, Cranial Nerves 3-12 NL Psych Exam: Mental status NL, Mood NL, Oriented x 3 Vital Signs/I&O Vital Signs Date Time Temp Pulse Resp B/P (MAP) Pulse Ox O2 Delivery O2 Flow Rate FiO2 04/20/19 14:00 97.5 66 15 111/43 (65) 94 Room Air 04/17/19 11:45 3 I&O- Last 24 Hours up to 6 AM 04/20/19 06:00 Intake Total 1270 ml Output Total 875 ml Balance 395 ml Laboratory Data 24H Labs Laboratory Tests 2 04/19/19 16:21: Bedside Glucose (Misc Panel) 129H 04/19/19 21:06: Bedside Glucose (Misc Panel) 224H 04/20/19 06:56: Nucleated Red Blood Cells % (auto) 0.0, Anion Gap 7L, Glomerular Filtration Rate 22.0L, Calcium Level 8.4L 04/20/19 07:39: Bedside Glucose (Misc Panel) 130H 04/20/19 12:28: Iron Level 14L, Total Iron Binding Capacity 204L, Transferrin % Saturation 6.9L, Digoxin Level 1.4 04/20/19 12:29: Prothrombin Time 14.6H, Prothromb Time International Ratio 1.17, Activated Partial Thromboplast Time 28.8 CBC/BMP Laboratory Tests 04/20/19 06:56 04/20/19 12:28 Microbiology Microbiology 04/19/19 Stool Occult Blood (KASEY) - Final, Complete Assessment A: 1. L>R hydronephrosis with suspected chronic issue on L - small L kidney 2. Multifactorial worsening renal function: [place]; recent contrast load; DM; recent antibiotics; Fecal impaction 3. Bladder calcification 4. Fresh DVT with recent IVC umbrella placement and new Heparin Drip Plan Plan: Advise observation for now, given the patients fragile condition and paucity of sx. May see improvement in hydro with fecal dis-impaction. Eventual cystoscopy to evaluate bladder. Will discuss with Dr. White re ongoing f/u. Pt may eat and continue on Heparin drip. D/W Dr Berry in Nephrology. Thank you for this consult. Time Spent on Consult: Time Spent / Consult (Minutes): 120 OMAR SIMON MD Apr 20, 2019 15:17
[2019-04-20 20:30] LABS: HEMATOCRIT 28.8 % (36.0-47.0); HEMOGLOBIN 8.6 g/dl (12.0-15.5)
[2019-04-20 22:00] VITALS: BP 111/42
[2019-04-20] MEDS: rOPINIRole 1MG TAB PO SCH (22:55)
[2019-04-21 02:24] LABS: HEMATOCRIT 28.3 % (36.0-47.0); HEMOGLOBIN 8.5 g/dl (12.0-15.5)
[2019-04-21 06:00] VITALS: BP 130/42
[2019-04-21 06:07] LABS: HEMATOCRIT 28.2 % (36.0-47.0); HEMOGLOBIN 8.5 g/dl (12.0-15.5); MEAN CORPUSCULAR HEMOGLOBIN 23.9 pg (27.0-33.0); MEAN CORPUSCULAR HGB CONC 30.1 g/dl (32.0-36.5); MEAN CORPUSCULAR VOLUME 79.4 fl (80.0-96.0); PLATELET COUNT, AUTOMATED 208 10^3/uL (150-450); RED BLOOD COUNT 3.55 10^6/uL (4.00-5.40); WHITE BLOOD COUNT 9.8 10^3/uL (4.0-10.0)
[2019-04-21 06:29] LABS: CALCIUM LEVEL 8.4 MG/DL (8.8-10.2); CREATININE FOR GFR 2.15 MG/DL (0.55-1.30); GLOMERULAR FILTRATION RATE 23.2 (>32)
[2019-04-21] MEDS: MIRALAX *UNIT DOSE* 17GM PACKET PO SCH (08:17)
[2019-04-21] MEDS: SERTRALINE HCL 25 MG TABLET PO SCH (08:18)
[2019-04-21] MEDS: DIGOXIN 0.0625MG PER 1/2TABLET PO SCH (08:18)
[2019-04-21] MEDS: FUROSEMIDE 40 MG/4 ML VIAL (J1940) IV SCH ×2 (08:18→20:55)
[2019-04-21] MEDS: DOCUSATE SODIUM 100 MG CAP PO SCH ×2 (08:18→20:21)
[2019-04-21] MEDS: SIMVASTATIN 40 MG TAB PO SCH (08:18)
[2019-04-21] MEDS: SENNA 8.6 MG TAB (SENOKOT) PO SCH ×2 (08:18→20:21)
[2019-04-21] MEDS: NADOLOL 20MG TABLET PO SCH (08:30)
[2019-04-21] MEDS: HEPARIN DRIP 25,000 UNITS in IV 1 EA IV SCH (11:19)
--- NOTE | 2019-04-21 12:04 | IPNPDOC ---
Subjective Date Seen The patient was seen on 04/21/19. Subjective Chief Complaint/HPI Did have a big bowel movement 2 days ago as per patient but no documentation in the EMR. Will continue on bowel regimen. No fever or chills, Right leg continues to be swollen and painful. will consult vascular. Objective Physical Examination General Exam: Positive: Alert, Cooperative, No Acute Distress Eye Exam: Positive: PERRLA, Conjunctiva & lids normal, EOMI; Negative: Sclera icteric ENT Exam: Positive: Atraumatic, Mucous membr. moist/pink, Other ENT (poor hearing) Neck Exam: Positive: Supple; Negative: JVD, thyromegaly Chest Exam: Positive: Clear to auscultation, Normal air movement Heart Exam: Positive: Rate Normal, Regular Rhythm, Normal S1, Normal S2, Murmurs (soft systolic murmur); Negative: Rubs Abdomen Exam: Positive: Normal bowel sounds, Soft, Tenderness (in the irhgt inguinal region); Negative: Hepatospenomegaly Extremity Exam: Positive: Edema (4+ bilateral pitting edema right . left extending up to both thighs, lower abdominal wall , bothe buttocks upto midback), Swelling (extending from jamee legs upto the chest anteroirly and also on the back up to the lowere chest) Skin Exam: Positive: Nl turgor and temperature Assessment /Plan Assessment 83 year old female with PMH of PSVT, Cervical cancer at age 29 s/p JOSE L and BSO, Right inguinal hernia s/p excision on 03/14/19, chronic anemia, Diabetes with diabetic neuropathy, GERD, asthma, depression, restless leg syndrome, hypertension, hyperlipidemia, anxiety, esophageal web, urge incontinence, impai red hearing, h/o rheumatc fever as a child first presented to [place] ED from home for sudden difficulty in ambulating. Irving complained of bilateral leg swelling graudually increasing for 2 to 3 moths worse over the past month since she got the surgery in the right inguinal region and yesterday noted that the right leg was much more swollen than the left and much more red and painful and she could not bear any weight. She was admitted to the [facility] where she was found to have left femoral DVT and gross bilateral subcutaneous edema right much worse than left with a possible localization in jamee right inguinal region which could be just subcutaneous edea. She was evaluated by surgeon in [place] and he did not feel that there was any localized collection that needed to be drained. It was felt to be localized cellulitis. Patient was started on vanco and zosyn in the other hospital cultures were sent. She was also started on Therapeutic lovenox. Her Hb on admission was 8.5 this morning it dropped to 7.0. patient was given 1 unit of blood and was placed for transfer to our ospital for consideration of IVC filter placement for the possibility of ongoing bleeding and unable to use anticoagulation for the acute DVT. Patient was transferred here for further management. Patient o my interview complained of pain and swelling of the right leg maximum in the right groin with pain of about 6/10 with no radiation . It was sharp stretching type. She denied any bleeding from anywhere. Dr Cuellar agreed to place a IVC filter. Bilateral DVTs New Right sided occlusive dvt on 04/19/19 from the common femoral to the popliteal veins. stool occult blood is negative. Left DVT noted first on the 04/15/19 then there was no right sided dvt seen then in the Doppler study from outside hospital. Had IVC filter placed on 04/17/19 hypercoagulable work up sent will start on heparin infusion. consult vascular surgery RACHEL on CKD stage 3 due to obstructive uropathy, contrast, fecal impaction Has bilateral hypdonephrosis inspite of having jara in place suggestive of bilateral ureteral obstructions. Seen by Dr fong from urology. observation for now, given the patients fragile c ondition and paucity of sx. Eventual cystoscopy to evaluate bladder. CT pelvis suggestive of confluence around vaginal cuff from pelvic wall to pelvic wall. She has a history of cervical cancer for which she had JOSE L and BSO and also radiation. continue lasix. hold ACEI /ARB Anemia stool occult blood negative. no overt bleeding. patient does have chronic anemia possibly from CKD no iron def, no folate def and no Vit b12 def at present. received 1 unit of PRBC will monitor hh will place on pantoprazole. Anasarca improve less swelling of the back. hypoalbuminemia due to malnutrition she also has bilateral DVTs which is causing the severe edema of both the legs right greater than left. No protein in UA so no nephrotic syndrome. echo reviewed no good EF, grade 1 diastolic dysfunction, no valvular abnormalities , no pulmonary HTn continue with diuresis. Hypertension will continue nadolol, hold ARB Diabetes getting recurrently hypoglycemic stopped glimiperide and insulin. follow hypoglycemic protocol. Hyperlipidemia statin. Depression sertraline Restless legs ropinirole PSVT patient on digoxin and nadolol at home will continue. Dig level 1.6 from [place]. will recheck level. Plan/VTE VTE Prophylaxis Ordered?: Yes VS, I&O, 24H, Fishbone Vital Signs/I&O Vital Signs Date Time Temp Pulse Resp B/P (MAP) Pulse Ox O2 Delivery O2 Flow Rate FiO2 04/21/19 08:30 62 113/48 04/21/19 06:00 97.8 16 94 Room Air 04/17/19 11:45 3 I&O- Last 24 Hours up to 6 AM 04/21/19 06:00 Intake Total 534 ml Output Total 1200 ml Balance -666 ml Laboratory Data 24H LABS Laboratory Tests 2 04/20/19 12:28: Iron Level 14L, Total Iron Binding Capacity 204L, Transferrin % Saturation 6.9L, Digoxin Level 1.4 04/20/19 12:29: Prothrombin Time 14.6H, Prothromb Time International Ratio 1.17, Activated Partial Thromboplast Time 28.8 04/20/19 16:37: Bedside Glucose (Misc Panel) 117H 04/20/19 20:19: Activated Partial Thromboplast Time 70.3H, Ferritin 444H 04/20/19 20:43: Bedside Glucose (Misc Panel) 200H 04/21/19 02:18: Activated Partial Thromboplast Time 83.0H 04/21/19 05:44: Activated Partial Thromboplast Time 71.6H, Nucleated Red Blood Cells % (auto) 0.0, Anion Gap 8, Glomerular Filtration Rate 23.2L, Calcium Level 8.4L 04/21/19 11:31: Bedside Glucose (Misc Panel) 129H CBC/BMP Laboratory Tests 04/20/19 12:28 04/20/19 20:19 04/21/19 02:18 04/21/19 05:44 Microbiology Microbiology 04/19/19 Stool Occult Blood (KASEY) - Final, Complete MAREK ANTUNEZ MD Apr 21, 2019 12:04
[2019-04-21 13:01] LABS: HEMOGLOBIN 8.9 g/dl (12.0-15.5)
[2019-04-21 14:00] VITALS: BP 117/47
--- NOTE | 2019-04-21 14:35 | CR.PDOC ---
General Date of Consultation: Apr 21, [address] Sales. HPI: 83year old F status post Right inguinal hernia repair on 03/14/19, who presented to [place] ED from home for sudden difficulty in ambulating. The pa chang complained of bilateral leg swelling worse since surgery 03/14/19. The day prior to admission the patient noted that the right leg was much more swollen than the left and much more red and painful and she could not bear any weight. She was admitted to [facility] where she was found to have left femoral DVT and gross bilateral subcutaneous edema right worse than left with a possible localization in the right inguinal region which could be just subcutaneous edema. She was evaluated by surgeon in [place] and he did not feel that there was any localized collection that needed to be drained. It was felt to be localized inguinal cellulitis. The patient was started on vanco and zosyn IV and therapeutic Lovenox SQ. The patient's Hb on admission was 8.5 and subsequently it dropped to 7.0. The patient was given 1 unit of blood and was transferred to [facility] 04/16/19 for consideration of IVC filter placement for possibility of ongoing bleeding and unable to use anticoagulation for the acute DVT. The patient is status post IVC filter placement as per Dr. Cuellra 04/17/19. Vascular surgery is consulted regarding occlusive DVT. Denies any fevers, chills, weakness, fatigue, Headache, Chest Pain, Shortness of breath, cough, palpitations, abdominal pain, N/V/D or changes in bowel or bl adder habits. Medical History/surgical history PSVT, Cervical cancer at age 29 s/p JOSE L and BSO, Right inguinal hernia repair 03/14/19, chronic anemia, Diabetes with diabetic neuropathy, GERD, asthma, depression, restless leg syndrome, hypertension, hyperlipidemia, anxiety, esophageal web, urge incontinence, impaired hearing, h/o rheumatc fever as a child. appendectomy JOSE L and BSO bilateral cataracts neck surgery. SOCHX: Tobacco use: Denies ETOH: Denies FAMHX: History of cervical cancer. ROS: As noted in HPI, otherwise 11pt ROS of systems reviewed and unremarkable. PE: GEN: 83 yo F, appears stated age. Alert and oriented x 3. HEENT: Normocephalic, atraumatic. No facial asymmetry. Moist mucous membranes. CHEST: Regular rate and rhythm, +S1, +S2 LUNGS: Clear to auscultation bilaterally. No wheezes, rales, or rhonchi. Breathing appears symmetric and easy. EXT: There is diffuse edema of the lower extremities right worse than the left. Patient currently with SCD in place. The feet are warm to touch. Doppler pulses are obtained DP/PT bilaterally. SKIN: [place], dry, warm. No rashes. NEURO: Alert and oriented x 3. No focal deficits appreciated. BILATERAL LOWER EXTREMITY DOPPLER VENOUS ULTRASOUND: 04/20/2019 CLINICAL HISTORY: Lower extremity swelling. IVC filter in place. Evaluate for DVT. FINDINGS: No prior study. The left lower extremity shows nonocclusive thrombus from the common femoral vein to the proximal mid aspect of the femoral vein in the thigh. Distal femoral vein and popliteal vein are intact. There is respiratory variation and augmentation from that mid femoral vein through the popliteal vein. Color flow without augmentation is maintained in the more proximal femoral vein and common femoral vein. The right lower extremity was quite limited due to extensive edema. The patient unable to turn her leg or assume decubitus position. Occlusive thrombus was seen in the right common femoral vein as well as in the proximal and mid femoral vein. The distal femoral vein was not visible. The popliteal vein shows occlusive thrombus. No color flow was seen in these vessels. As an incidental finding, but corresponding to CT exam yesterday, there is a 6.7 x 4.1 x 2.9 cm complex fluid collection in the right groin, consistent with hematoma. IMPRESSION: 1. There is occlusive thrombus throughout the deep venous system of the right lower extremity from the common femoral vein through the mid femoral vein and then again in the popliteal vein. The distal right femoral vein is not visible due to edema and the patient's inability to turn leg or assume decubitus position. 2. There is a complex fluid collection representing right groin hematoma 6.7 x 4.1 cm. 3. Nonocclusive thrombus in the left lower extremity from the common femoral vein to the mid femoral vein in the thigh. Remainder of the left deep venous system was intact. Electronically Signed by Jaron De La Torre MD 04/20/2019 11:03 A A&P: 1. DVT. Ultrasound indicating occlusive DVT in the right lower extremity, nonocclusive left lower extremity. The patient is status post IVC filter 04/17/19. Continue with heparin gtt per protocol. Hemoglobin has been stable in the 8's, which is the patient's previous baseline on admission of 8.5. The patient's swelling is worse on the right than the left. Would recommend continued elevation above the level of the heart. I have elevated the base of the patient's bed. Avoid sitting with legs dependent as this may worsen the patient's edema and discomfort. The patient can use SCDs on lower extremities. Ambulation as tolerated. Continue to monitor. Vital Signs/I&O Vital Signs Date Time Temp Pulse Resp B/P (MAP) Pulse Ox O2 Delivery O2 Flow Rate FiO2 04/21/19 08:30 62 113/48 04/21/19 06:00 97.8 16 94 Room Air 04/17/19 11:45 3 I&O- Last 24 Hours up to 6 AM 04/21/19 06:00 Intake Total 534 ml Output Total 1200 ml Balance -666 ml Laboratory Data Labs 24H Laboratory Tests 2 04/20/19 16:37: Bedside Glucose (Misc Panel) 117H 04/20/19 20:19: Activated Partial Thromboplast Time 70.3H, Ferritin 444H 04/20/19 20:43: Bedside Glucose (Misc Panel) 200H 04/21/19 02:18: Activated Partial Thromboplast Time 83.0H 04/21/19 05:44: Nucleated Red Blood Cells % (auto) 0.0, Activated Partial Thromboplast Time 71.6H, Anion Gap 8, Glomerular Filtration Rate 23.2L, Calcium Level 8.4L 04/21/19 11:31: Bedside Glucose (Misc Panel) 129H 04/21/19 12:46: Activated Partial Thromboplast Time 65.8H CBC/BMP Laboratory Tests 04/20/19 20:19 04/21/19 02:18 04/21/19 05:44 04/21/19 12:46 Microbiology Microbiology 04/19/19 Stool Occult Blood (KASEY) - Final, Complete Allergies Coded Allergies: No Known Allergies (Verified Allergy, Unknown, 04/16/19) Home Medications Scheduled Ascorbic Acid (Ascorbic Acid) 500 Mg Tablet, 1,000 MG PO DAILY, (Reported) Digoxin (Digoxin) 125 Mcg Tablet, 125 MCG PO Q2D, (Reported) ALTERNATES WITH 62.5MCG Digoxin (Digoxin) 125 Mcg Tablet, 62.5 MCG PO Q2D, (Reported) ALTERNATES WITH 125MCG Glimepiride (Glimepiride) 4 Mg Tablet, 4 MG PO DAILY, (Reported) L.acidoph/L.bulg/B.bif/S.therm (Bacid Caplet) 1 Each Tablet, 1 TAB PO DAILY, ( Reported) Levocetirizine Dihydrochloride (Levocetirizine Dihydrochloride) 5 Mg Tablet, 5 MG PO DAILY, (Reported) Nadolol (Nadolol) 20 Mg Tablet, 20 MG PO DAILY, (Reported) Ropinirole HCl (Ropinirole HCl) 0.5 Mg Tablet, 1 MG PO QPM, (Reported) Sertraline HCl (Sertraline HCl) 25 Mg Tablet, 25 MG PO DAILY, (Reported) Simvastatin (Simvastatin) 40 Mg Tablet, 40 MG PO DAILY, (Reported) Valsartan (Valsartan) 320 Mg Tablet, 320 MG PO DAILY, (Reported) Scheduled PRN Fluticasone Propionate (Flonase Allergy Relief) 9.9 Ml Bunch.susp, 2 SPRAY NARES DAILY PRN for NASAL CONGESTION, (Reported) Polyethylene Glycol 3350 (Miralax) 119 Gm Powder, 17 GM PO DAILY PRN for CONSTIPATION, (Reported) dilute in 8 ounces of water or juice Ropinirole HCl (Ropinirole HCl) 0.5 Mg Tablet, 1 MG PO QHS PRN for RESTLESSNESS, (Reported) Edna Cade Apr 21, 2019 14:19
--- NOTE | 2019-04-21 18:41 | IPNPDOC ---
Subjective Review oF Systems Chief Complaint The patient is a 83-year-old female admitted with a reason for visit of DVT. Events since Last Encounter No acute events o/n. Denies abdominal or flank pain. Has not had a bowel movement in 3-4 days. Objective Physical Examination General Exam: Alert, Cooperative, No Acute Distress Chest Exam: Normal air movement Heart Exam: Positive: Rate Normal ABDOMEN EXAM: BS Hyperactive, BS Hypoactive, Soft; No: Tenderness Skin Exam: Nl turgor and temperature Neuro Exam: Normal Speech Psych Exam: Mental status NL, Mood NL Other physical findings no CVAT Vital Signs/I&O Vital Signs Date Time Temp Pulse Resp B/P (MAP) Pulse Ox O2 Delivery O2 Flow Rate FiO2 04/21/19 14:00 98.5 73 16 117/47 (70) 98 Room Air 04/17/19 11:45 3 I&O- Last 24 Hours up to 6 AM 04/21/19 06:00 Intake Total 534 ml Output Total 1200 ml Balance -666 ml Laboratory Data Labs 24H Laboratory Tests 2 04/20/19 20:19: Activated Partial Thromboplast Time 70.3H, Ferritin 444H 04/20/19 20:43: Bedside Glucose (Misc Panel) 200H 04/21/19 02:18: Activated Partial Thromboplast Time 83.0H 04/21/19 05:44: Activated Partial Thromboplast Time 71.6H, Nucleated Red Blood Cells % (auto) 0.0, Anion Gap 8, Glomerular Filtration Rate 23.2L, Calcium Level 8.4L 04/21/19 11:31: Bedside Glucose (Misc Panel) 129H 04/21/19 12:46: Activated Partial Thromboplast Time 65.8H 04/21/19 16:28: Bedside Glucose (Misc Panel) 103 CBC/BMP Laboratory Tests 04/20/19 20:19 04/21/19 02:18 04/21/19 05:44 04/21/19 12:46 FSBS Laboratory Tests Test 04/20/19 20:43 04/21/19 11:31 04/21/19 16:28 Range/Units Bedside Glucose (Misc Panel) 200 129 103 83-110 MG/DL Microbiology Microbiology 04/19/19 Stool Occult Blood (KASEY) - Final, Complete Assessment/Plan Date Seen The patient was seen on 04/21/19. Patient Summary This is an 83 y/o F w/ RACHEL on CKD, found to have b/l hydroureteronephrosis and an atrophic left kidney. The RACHEL is likely related to the recent IV contrast load but also potentially due to her hydro. The hydro appears to be due to J- hooking of the ureters from the bladder being pushed upward by a distended rectum from fecal impaction. I do not recommend stenting as this should resolve w/ treatment of her impaction. Plan/VTE VTE Prophylaxis Ordered?: Yes VTE Exclusion Mechanical Proph: N/A:VTE Prophy Ordered Plan - recommend bowel regimen to help w/ impaction - order placed for enema - will arrange outpatient f/u to reassess hydro and get her set up for cystoscopy to evaluate calcification in her bladder seen on CT - will sign off at this time TRIPP CARNES MD Apr 21, 2019 18:41
[2019-04-21] MEDS ORDERED: FLEET ENEMA PR ONE (18:45)
--- NOTE | 2019-04-21 19:43 | IPN ---
DATE: 04/21/2019 Mrs. Ruvalcaba is seen this morning on her bedside. She is about the same and denies any new complaints or change. She still has bilateral lower extremity edema but no dyspnea or chest pain. She was seen by urology and urologist did not feel that the patient will benefit from ureteral stent placement even though her CT scan did report bilateral hydronephrosis. The urologist felt that the patient has chronic hydronephrosis and not likely to benefit from stent placement. She has been on an IV heparin drip. She already has an inferior vena cava filter in place. She was also noticed to have a 5.8 cm seroma in her right groin area where she had surgery. She was noticed to have severe constipation with a large amount of stool in her distal colon. PHYSICAL EXAMINATION: Temperature is 97.8 degrees Fahrenheit, heart rate 62 per minute and respiratory rate 16 per minute. Blood pressure 130/42 mmHg and oxygen saturation 94% on room air. Intake and output records have been inaccurate. Her head is atraumatic. Neck is supple and jugular venous distention (JVD) not abnormally elevated. Heart sounds are regular. Lungs sound clear to auscultation. Abdomen is soft and nontender. Bowel sounds are normal. Back has presacral edema and lower abdominal wall also has edema. Extremities have no cyanosis or clubbing. Right lower extremity has 3+ edema up to her waist and left lower extremity has only 1+ edema. Neurologically, she is awake, alert and oriented times three. LABORATORY DATA: Today's laboratories show WBC count 9.8, hemoglobin 8.5 and hematocrit 28.2. Sodium is 133, potassium 4.0, BUN 64 and creatinine 2.15. Glucose 126 and calcium 8.4. Her iron level was only 14 and ferritin 444. PROBLEMS: 1. Acute kidney injury superimposed on chronic kidney disease. The patient did have bilateral hydronephrosis on the CT scan. However, urologist was not convinced that she needs to have ureteral stents placed. At present, her kidney function seems to be leveled off. I would recommend to continue with diuresis and aim for a negative fluid balance of about one liter. 2. Hypervolemia with peripheral edema. Her volume status is still decompensated but most of her edema is on lower half of the body. Doppler ultrasound showed occlusive thrombosis throughout the deep venous system of the right lower extremity which explains more swelling on her right leg. She is now on anticoagulation. 3. Anemia. She has iron deficiency and significant anemia. At present, there is no emergent need for a transfusion. She should receive intravenous iron supplement which will help with her anemia. 4. Bilateral hydronephrosis. She has been seen by urology. However, cystoscopy and ureteral stent have not been considered by urology. At this point, we will continue to follow urology recommendations and see if they change their mind. HILARIA
[2019-04-21 20:11] LABS: HEMATOCRIT 28.6 % (36.0-47.0); HEMOGLOBIN 8.5 g/dl (12.0-15.5)
[2019-04-21] MEDS: rOPINIRole 1MG TAB PO SCH (20:55)
[2019-04-21 22:00] VITALS: BP 124/44
[2019-04-22 03:55] LABS: HEMATOCRIT 27.4 % (36.0-47.0); HEMOGLOBIN 8.2 g/dl (12.0-15.5); MEAN CORPUSCULAR HEMOGLOBIN 23.6 pg (27.0-33.0); MEAN CORPUSCULAR HGB CONC 29.9 g/dl (32.0-36.5); MEAN CORPUSCULAR VOLUME 78.7 fl (80.0-96.0); PLATELET COUNT, AUTOMATED 214 10^3/uL (150-450); RED BLOOD COUNT 3.48 10^6/uL (4.00-5.40); WHITE BLOOD COUNT 9.5 10^3/uL (4.0-10.0)
[2019-04-22 05:14] LABS: CALCIUM LEVEL 7.8 MG/DL (8.8-10.2); CREATININE FOR GFR 2.02 MG/DL (0.55-1.30); GLOMERULAR FILTRATION RATE 24.9 (>32)
[2019-04-22] MEDS: HEPARIN DRIP 25,000 UNITS in IV 1 EA IV SCH (05:43)
[2019-04-22 06:00] VITALS: BP 129/47
[2019-04-22] MEDS: FUROSEMIDE 40 MG/4 ML VIAL (J1940) IV SCH ×2 (08:18→21:41)
[2019-04-22 09:15] VITALS: BP 128/49
--- NOTE | 2019-04-22 09:37 | IPNPDOC ---
Text Note Date of Service The patient was seen on 04/22/19. NOTE Vascular Surgery Dr Sales. HPI: 83year old F status post Right inguinal hernia repair on 03/14/19, who presented to [place] ED from home for sudden difficulty in ambulating transferred to [facility] 04/16/19 for consideration of IVC filter placement for possibility of ongoing bleeding and unable to use anticoagulation for the acute DVT. The patient is status post IVC filter placement as per Dr. Cuellar 04/17/19. Vascular surgery is consulted regarding occlusive DVT. Denies any fevers, chills, weakness, fatigue, Headache, Chest Pain, Shortness of breath, cough, palpitations, abdominal pain, N/V/D or changes in bowel or bladder habits. PE: GEN: 83 yo F, appears stated age. Alert and oriented x 3. HEENT: Moist mucous membranes. CHEST: Regular rate and rhythm, +S1, +S2 LUNGS: Clear to auscultation bilaterally. EXT: There is diffuse edema of the lower extremities right worse than the left however it is less pronounced this AM. Patient currently with SCD in place. The feet are warm to touch. NEURO: Alert and oriented x 3. No focal deficits appreciated. A&P: 1. DVT. Ultrasound indicating occlusive DVT in the right lower extremity, nonocclusive l eft lower extremity. The patient is status post IVC filter 04/17/19. Continue with heparin gtt per protocol. Hemoglobin has been stable in the 8's, which is the patient's previous baseline on admission of 8.5. The patient's swelling is worse on the right than the left, it is noted to be improved this AM. Would recommend continued elevation above the level of the heart. I have elevated the base of the patient's bed. Avoid sitting with legs dependent as this may worsen the patient's edema and discomfort. The patient can use SCDs on lower extremities. Ambulation as tolerated. Continue to monitor. VS,Fishbone, I+O VS, Fishbone, I+O Laboratory Tests 04/21/19 12:46 04/21/19 19:55 04/22/19 03:48 Vital Signs Date Time Temp Pulse Resp B/P (MAP) Pulse Ox O2 Delivery O2 Flow Rate FiO2 04/22/19 06:00 98.0 74 18 129/47 (74) 93 Room Air 04/17/19 11:45 3 I&O- Last 24 Hours up to 6 AM 04/22/19 06:00 Intake Total 974 ml Output Total 1350 ml Balance -376 ml Edna Cade Apr 22, 2019 09:37
[2019-04-22 09:40] VITALS: BP 120/52
[2019-04-22] MEDS: MIRALAX *UNIT DOSE* 17GM PACKET PO SCH (09:43)
[2019-04-22] MEDS: DOCUSATE SODIUM 100 MG CAP PO SCH ×2 (09:43→21:39)
[2019-04-22] MEDS: DIGOXIN 0.125 MG TAB PO SCH (09:43)
[2019-04-22] MEDS: NADOLOL 20MG TABLET PO SCH (09:43)
[2019-04-22] MEDS: SENNA 8.6 MG TAB (SENOKOT) PO SCH ×2 (09:44→21:39)
[2019-04-22] MEDS: SIMVASTATIN 40 MG TAB PO SCH (09:44)
[2019-04-22] MEDS: SERTRALINE HCL 25 MG TABLET PO SCH (09:44)
[2019-04-22 11:33] LABS: DRVV SCREEN 56.5 SEC
[2019-04-22 11:39] LABS: PTT LUPUS TYPE ANTICOAG SCREEN 1.4 (0-1.2)
[2019-04-22 11:48] LABS: DRVV CONFIRM 43.8 SEC; LUPUS CONFIRM RATIO 1.1
[2019-04-22 11:53] LABS: NORMALIZED RATIO 1.27 (0.00-1.20)
[2019-04-22 14:00] VITALS: BP 120/48
--- NOTE | 2019-04-22 15:49 | IPN ---
DATE: 04/22/2019 The patient has not been ambulatory. She is status post IVC filter for bilateral lower extremity deep vein thrombosis (DVT). He does not complain of any chest pain, pressure, tightness, or worsening shortness of breath. Afebrile. No complaints of chills overnight. Per vascular surgery, no plans for thrombectomy. Status post IVC filter by Dr. Cuellar, interventional radiology. The patient remains with stable creatinine. Urine output is adequate and is documented at 1.5 liters overnight. Creatinine remains at 2.02 with stage IV chronic kidney disease. PHYSICAL EXAMINATION: VITAL SIGNS: Temperature 97.8, pulse 79, respiratory rate 22, blood pressure 120/52, 92% on room air. GENERAL: The patient is awake, alert, oriented to person, place and time. Answering questions appropriately. No use of respiratory accessory muscles. Able to speak in full sentences. No jugular venous distention (JVD). No thyromegaly. LUNGS: Clear to auscultation. No wheezing, rales or rhonchi. Bilateral air entry is equal. HEART: S1, S2. Sinus rhythm. ABDOMEN: Soft, nontender, nondistended. Positive bowel sounds. EXTREMITIES: Positive lower extremity edema bilaterally, right worse than left. LABORATORY DATA: White count 9.5, hemoglobin 8.2, hematocrit 27, platelet count 214. Sodium 137, potassium 4.0, chloride 101, bicarbonate 27, BUN 69, creatinine 2.02, glucose of 146, digoxin of 1.4. ASSESSMENT AND PLAN: This is an 83-year-old female with a history of paroxysmal supraventricular tachycardia (PSVT), cervical cancer, anemia, diabetes with neuropathy, hypertension, dyslipidemia, who presented with generalized weakness and unable to ambulate with lower extremity edema, was found to have bilateral lower extremity deep vein thrombosis (DVT), status post IVC filter placement. The patient was found to have a loculated collection that did not need to be drained per evaluation by [facility] surgeon. The patient's hemoglobin dropped to 7 after she was started on Lovenox and [facility]. Hemoccult stool remains negative. IMPRESSION: 1. Bilateral lower extremity DVT, status post IVC filter placement on 04/17/2019. The patient is currently on intravenous heparin drip. Coagulation workup has been sent. Vascular surgery recommends no intervention at this time. 2. Acute on chronic renal failure stage III with bilateral hydronephrosis. Per urology, no need for a stent at this time. Remains in stage IV renal failure. Nephrology is consulted. On current Lasix. Holding the scyeopjgbcu-aumxoiehaq-nczcav (SAMIR) inhibitor and angiotensin receptor sravan (ARB). 3. Hemoccult stool negative but symptomatic anemia with complaints of generalized weakness. Status post 2 units of red blood cells transfusion with a current hemoglobin stable at 8.2 and hematocrit 27 from peak of 8.9 and 29. Continue to monitor the patient's hemoglobin and hematocrit. Hemoccult stool is negative. 4. Paroxysmal supraventricular tachycardia (PSVT) on chronic digoxin and nadolol. 5. Restless legs. On ropinirole. 6. Dyslipidemia. On statin. 7. Depression. On sertraline. 8. Type 2 diabetes. On sliding scale and fingersticks before food and nightly with hypoglycemic protocol. MTDD
[2019-04-22] MEDS: traMADol 50 MG TAB PO PRN (16:52)
--- NOTE | 2019-04-22 18:06 | IPN ---
DATE: 04/22/2019 Mrs. Guido is seen this morning on her bedside. She remains on intravenous (IV) heparin drip. Her leg edema is gradually improving. She denies any dyspnea or chest pain. She had massive deep vein thrombosis (DVT) in her right lower extremity, while she also had a DVT previously in her left lower extremity and already has an inferior vena cava filter in place. She denies any nausea, vomiting, dyspnea, or chest pain. She had bilateral hydronephrosis on CT scan of abdomen and pelvis; however, urologist felt that it was chronic and does not need any stenting at this point. PHYSICAL EXAMINATION: Temperature 97.8 degrees Fahrenheit, heart rate 56 per minute, and respiratory rate 22 per minute. Blood pressure 120/48 mm of mercury and oxygen saturation 98% on room air. Head is atraumatic. Neck supple and without jugular venous distention (JVD) or thyroid enlargement. Heart sounds regular and lungs clear to auscultation. Abdomen soft and nontender. Extremities without any cyanosis or clubbing. Lower body edema is gradually improving. Neurologically, she is awake, alert, and oriented times three. Today's labs show WBC count 9.5, hemoglobin 8.2, and hematocrit 27.4. Sodium 137, potassium 4.0, CO2 of 27, BUN 69, and creatinine 2.02. Glucose 146 and calcium 7.8. PROBLEMS: 1. Acute kidney injury superimposed on chronic kidney disease. Most likely this is renal vein thrombosis related to her DVT and seems to be improving since we started anticoagulation. She does not have a ureteral stent and does have a Jeffries catheter, which is draining clear urine. 2. Bilateral lower extremity DVTs. She has extensive DVT, which is probably extending to the inferior vena cava and likely to renal veins. Her kidney function is improving, and lower extremity edema is also improving with anticoagulation. 3. Anemia. Her anemia is gradually worsened, and we will monitor on daily basis. No emergent need for transfusion.
[2019-04-22] MEDS: rOPINIRole 1MG TAB PO SCH (21:40)
[2019-04-22 22:00] VITALS: BP 138/78
[2019-04-23] MEDS: HEPARIN DRIP 25,000 UNITS in IV 1 EA IV SCH (03:32)
[2019-04-23 06:00] VITALS: BP 140/65
[2019-04-23 06:27] LABS: HEMATOCRIT 28.2 % (36.0-47.0); HEMOGLOBIN 8.5 g/dl (12.0-15.5); MEAN CORPUSCULAR HEMOGLOBIN 23.7 pg (27.0-33.0); MEAN CORPUSCULAR HGB CONC 30.1 g/dl (32.0-36.5); MEAN CORPUSCULAR VOLUME 78.6 fl (80.0-96.0); PLATELET COUNT, AUTOMATED 247 10^3/uL (150-450); RED BLOOD COUNT 3.59 10^6/uL (4.00-5.40); WHITE BLOOD COUNT 10.2 10^3/uL (4.0-10.0)
[2019-04-23 06:51] LABS: CALCIUM LEVEL 8.5 MG/DL (8.8-10.2); CREATININE FOR GFR 1.81 MG/DL (0.55-1.30); GLOMERULAR FILTRATION RATE 28.3 (>32); POTASSIUM SERUM 3.9 MEQ/L (3.5-5.1)
[2019-04-23 08:16] VITALS: BP 148/67
--- NOTE | 2019-04-23 08:33 | IPNPDOC ---
Text Note Date of Service The patient was seen on 04/23/19. NOTE Vascular Surgery Dr Sales. HPI: 83year old F status post Right inguinal hernia repair on 03/14/19, who presented to [place] ED from home for sudden difficulty in ambulating transferred to [facility] 04/16/19 for consideration of IVC filter placement for possibility of ongoing bleeding and unable to use anticoagulation for the acute DVT. The patient is status post IVC filter placement as per Dr. Cuellar 04/17/19. Vascular surgery is consulted regarding occlusive DVT. The pt states her RLE edema is better and overall the RLE is feeling better. States she has been keeping the bed elevated but asked nursing to put it down for breakfast this AM. Denies any fevers, chills, weakness, fatigue, Headache, Chest Pain, Shortness of breath, cough, palpitations, abdominal pain, N/V/D or changes in bowel or bladder habits. PE: GEN: 83 yo F, appears stated age. Alert and oriented x 3. HEENT: Moist mucous membranes. CHEST: Regular rate and rhythm, +S1, +S2 LUNGS: Clear to auscultation bilaterally. EXT: There is decreased edema of the lower extremities, RLE edema is less. Patient currently with SCD in place. The feet are warm to touch. NEURO: Alert and oriented x 3. No focal deficits appreciated. A&P: 1. DVT. Ultrasound indicating occlusive DVT in the right lower extremity, nonocclusive left lower extremity. The patient is status post IVC filter 04/17/19. The patient's swelling is worse on the right than the left, but is less pronounced. Would recommend continued elevation above the level of the heart. Avoid sitting with legs dependent as this may worsen the patient's edema and discomfort. I have previously elevated the base of the patient's bed. The pt requested that it be put down for breakfast this AM and I have advised nursing and the pt to re elevate after breakfast. The patient can use SCDs on lower extremities. Ambulation as tolerated. The pt remains on heparin gtt per protocol. Hemoglobin has been stable in the 8's, which is the patient's previous baseline on admission of 8.5. Could consider transition to DOAC, will defer to medicine svc. Continue to monitor. VS,Fishbone, I+O VS, Fishbone, I+O Laboratory Tests 04/23/19 06:08 Vital Signs Date Time Temp Pulse Resp B/P (MAP) Pulse Ox O2 Delivery O2 Flow Rate FiO2 04/23/19 08:16 98.4 67 16 148/67 95 Room Air 04/17/19 11:45 3 I&O- Last 24 Hours up to 6 AM 04/23/19 05:59 Intake Total 1404 ml Output Total 1725 ml Balance -321 ml Edna Cade Apr 23, 2019 08:33
[2019-04-23] MEDS: SIMVASTATIN 40 MG TAB PO SCH (08:43)
[2019-04-23] MEDS: SENNA 8.6 MG TAB (SENOKOT) PO SCH ×2 (08:43→20:39)
[2019-04-23] MEDS: NADOLOL 20MG TABLET PO SCH (08:43)
[2019-04-23] MEDS: DOCUSATE SODIUM 100 MG CAP PO SCH ×2 (08:43→20:39)
[2019-04-23] MEDS: SERTRALINE HCL 25 MG TABLET PO SCH (08:43)
[2019-04-23] MEDS: DIGOXIN 0.0625MG PER 1/2TABLET PO SCH (08:44)
[2019-04-23] MEDS: FUROSEMIDE 40 MG/4 ML VIAL (J1940) IV SCH ×2 (08:44→20:37)
[2019-04-23] MEDS: MIRALAX *UNIT DOSE* 17GM PACKET PO SCH (08:44)
[2019-04-23] MEDS: APIXABAN 5 MG TAB (ELIQUIS) PO SCH ×2 (09:27→20:37)
--- NOTE | 2019-04-23 12:44 | IPN ---
DATE OF SERVICE: 04/23/2019 The patient is not ambulatory and would most likely require acute rehabilitation. She has had significant difficulty standing up and pivoting by herself. No complaints of chest pain, pressure or tightness, worsening shortness of breath, palpitations, lightheadedness, or near syncope. Afebrile. Temperature 98.4, pulse 67, respiratory rate 16, blood pressure 140/65, 95% on room air. Generally, the patient is awake, alert and oriented to person, place and time. Very hard of hearing. Moist mucous membranes. No jugular venous distention (JVD). No thyromegaly. Lungs are clear to auscultation. No wheezing or rales. Heart: S1, S2. Sinus rhythm. No murmurs, rubs or gallops. Abdomen: Soft. Nontender. Nondistended. Extremities: Bilateral lower extremity edema, right greater than left, to the sacrum. LABORATORY DATA: White count 11.8, hemoglobin 8.5, hematocrit 28, platelet count 247. Sodium 133, potassium 3.9, chloride 96, bicarbonate 28, BUN 65, creatinine 1.8, glucose 120. ASSESSMENT AND PLAN: 83-year-old female with history of paroxysmal supraventricular tachycardia, cervical cancer, anemia, diabetes, hypertension and dyslipidemia admitted for: 1. Bilateral lower extremity deep vein thrombosis (DVT), status post IVC filter on 04/17/2019, status post IV heparin drip, currently on renally dosed Eliquis twice a day. Vascular surgery recommends no surgical intervention and at this time to continue with direct oral anticoagulant. 2. Acute on chronic renal failure Stage 3, but with bilateral hydronephrosis. No need for stent per urology. Nephrology managing fluid balance, holding SAMIR inhibitor and ARB for now. 3. Hemoccult stool negative with symptomatic anemia. Status post two units of packed red blood cell (RBC) transfusion with normal vitals at this time. Hemoglobin/hematocrit (H/H) appears to be stable. Therefore, may change to oral anticoagulant. 4. Paroxysmal supraventricular tachycardia. Rate controlled on digoxin and nadolol. MTDD
[2019-04-23 14:00] VITALS: BP 122/50
[2019-04-23] MEDS: rOPINIRole 1MG TAB PO SCH (20:39)
--- NOTE | 2019-04-23 21:31 | IPN ---
DATE: 04/23/2019 Mrs. Guido is seen this morning on her bedside. She is feeling better and reports improved lower extremity edema. She denies any dyspnea or chest pain. PHYSICAL EXAMINATION Temperature 98.4 degrees Fahrenheit, heart rate 68 per minute and respiratory rate 16 per minute. Blood pressure 148/67 mmHg and oxygen saturation 95% on room air. Head is atraumatic. Neck is supple and without JVD or thyroid enlargement. Heart: Sounds are regular and lungs clear to auscultation. Abdomen: Soft and nontender. Bowel sounds are normal. Extremities: Without any cyanosis or clubbing. Neurologically she is awake, alert and oriented times three. LABS: Today's labs show WBC count 10.2, hemoglobin 8.5 and hematocrit 28.2. Sodium 133, potassium 3.9, CO2 28, BUN 65 and creatinine 1.81. PROBLEMS: 1. Acute renal failure superimposed on chronic kidney disease, most likely related to extensive deep venous thrombosis (DVT) extending to her inferior vena cava and possibly involving renal veins. Since anticoagulation, her kidney function has started to improve. We will continue to monitor closely. 2. Generalized lower body edema. Volume status is improving with diuresis. She has been on Lasix 40 mg twice a day. We will continue the same for today and reevaluate her for tomorrow for any further change. 3. Bilateral lower extremity DVT. The patient was on heparin drip and has been now switched to Eliquis 5 mg twice a day. 4. Anemia. No significant change and no urgent indication for transfusion. Anemia is stable. 5. Hyponatremia. She has mild hyponatremia related to acute renal failure and diuretic use. No intervention is needed and we will continue to monitor her electrolytes on a daily basis.
[2019-04-23 22:00] VITALS: BP 116/59
[2019-04-24 06:00] VITALS: BP 141/54
[2019-04-24 06:17] LABS: HEMATOCRIT 26.6 % (36.0-47.0); HEMOGLOBIN 8.4 g/dl (12.0-15.5); MEAN CORPUSCULAR HEMOGLOBIN 24.4 pg (27.0-33.0); MEAN CORPUSCULAR HGB CONC 31.6 g/dl (32.0-36.5); MEAN CORPUSCULAR VOLUME 77.3 fl (80.0-96.0); PLATELET COUNT, AUTOMATED 241 10^3/uL (150-450); RED BLOOD COUNT 3.44 10^6/uL (4.00-5.40); WHITE BLOOD COUNT 9.8 10^3/uL (4.0-10.0)
[2019-04-24 06:50] LABS: ALBUMIN 2.2 GM/DL (3.2-5.2); CREATININE FOR GFR 1.81 MG/DL (0.55-1.30); GLOMERULAR FILTRATION RATE 28.3 (>32); PHOSPHORUS LEVEL 3.8 MG/DL (2.5-4.9); POTASSIUM SERUM 3.8 MEQ/L (3.5-5.1)
[2019-04-24 07:45] VITALS: BP 148/52
--- NOTE | 2019-04-24 08:27 | IPNPDOC ---
Text Note Date of Service The patient was seen on 04/24/19. NOTE Vascular Surgery Dr Sales. HPI: 83year old F status post Right inguinal hernia repair on 03/14/19, who presented to [place] ED from home for sudden difficulty in ambulating transferred to [facility] 04/16/19 for consideration of IVC filter placement for possibility of ongoing bleeding and unable to use anticoagulation for the acute DVT. The patient is status post IVC filter placement as per Dr. Cuellar 04/17/19. Vascular surgery is consulted regarding occlusive DVT. The pt states her RLE edema is better and overall the RLE is feeling better. The Pt was noted to have the foot of her bed back down this AM. Denies any fevers, chills, weakness, fatigue, Headache, Chest Pain, Shortness of breath, cough, palpitations, abdominal pain, N/V/D or changes in bowel or bladde r habits. PE: GEN: 83 yo F, appears stated age. Alert and oriented x 3. HEENT: Moist mucous membranes. CHEST: Regular rate and rhythm, +S1, +S2 LUNGS: Clear to auscultation bilaterally. EXT: There is improved edema of the lower extremities, RLE edema is less. Patient currently with SCD in place. The feet are warm to touch. NEURO: Alert and oriented x 3. No focal deficits appreciated. A&P: 1. DVT. Ultrasound indicating occlusive DVT in the right lower extremity, nonocclusive left lower extremity. The patient is status post IVC filter 04/17/19. The patient's swelling is worse on the right than the left, but is less pronounced. Would recommend continued elevation above the level of the heart. Avoid sitting with legs dependent as this may worsen the patient's edema and discomfort. I have previously elevated the base of the patient's bed. I have elevated the bas e of the bed again this AM. I have re inforced with nursing as well. The patient can use SCDs on lower extremities. Ambulation as tolerated. The pt has been transitioned to Eliquis as per medicine [facility] [place]. Hemoglobin has been stable in the 8's, which is the patient's previous baseline on admission of 8.5. Continue to monitor. VS,Fishbone, I+O VS, Fishbone, I+O Laboratory Tests 04/24/19 05:55 Vital Signs Date Time Temp Pulse Resp B/P (MAP) Pulse Ox O2 Delivery O2 Flow Rate FiO2 04/24/19 06:51 95 Room Air 04/24/19 06:00 98.2 72 18 141/54 (83) I&O- Last 24 Hours up to 6 AM 04/24/19 06:00 Intake Total 910 ml Output Total 1525 ml Balance -615 ml Edna Cade Apr 24, 2019 08:26
[2019-04-24 09:15] VITALS: BP 148/52
[2019-04-24] MEDS: SENNA 8.6 MG TAB (SENOKOT) PO SCH ×2 (10:26→20:37)
[2019-04-24] MEDS: NADOLOL 20MG TABLET PO SCH (10:27)
[2019-04-24] MEDS: DIGOXIN 0.125 MG TAB PO SCH (10:28)
[2019-04-24] MEDS: DOCUSATE SODIUM 100 MG CAP PO SCH ×2 (10:29→20:37)
[2019-04-24] MEDS: APIXABAN 5 MG TAB (ELIQUIS) PO SCH ×2 (10:29→20:37)
[2019-04-24] MEDS: MIRALAX *UNIT DOSE* 17GM PACKET PO SCH (10:31)
[2019-04-24] MEDS: SIMVASTATIN 40 MG TAB PO SCH (10:33)
[2019-04-24] MEDS: SERTRALINE HCL 25 MG TABLET PO SCH (10:33)
[2019-04-24] MEDS: HumaLOG INSULIN (NovoLOG) PER UNIT SC SCH ×3 (12:25→20:36)
[2019-04-24] MEDS ORDERED: IRON SUCROSE 500 MG in NS 250 ML IV ONE (12:30)
[2019-04-24 13:05] VITALS: BP_SYST 130; BP_SYST 148; BP_DIAS 50; BP_DIAS 52
[2019-04-24 14:00] VITALS: BP 135/55
[2019-04-24] MEDS ORDERED: IRON SUCROSE 25 MG in NS 50 ML IV ONE (14:00)
[2019-04-24] MEDS ORDERED: IRON SUCROSE 475 MG in NS 250 ML IV ONE (14:00)
--- NOTE | 2019-04-24 14:18 | IPN ---
DATE: 04/24/2019 Mrs. Guido is seen this morning on her bedside. She is somewhat discouraged as she has been advised by nursing staff that she will end up going to the assisted if she does not get up and start walking. She had bilateral lower extremity deep vein thrombosis (DVT) with extensive DVT in her right lower extremity and significant edema. She also had acute renal failure which is now improving since we have started anticoagulation. The patient denies any dyspnea, chest pain, fever or chills. On physical examination, temperature 99 degrees Fahrenheit, heart rate 68 per minute and respiratory rate 20 per minute. Blood pressure 148/52 mmHg and oxygen saturation 96% on room air. Head is atraumatic. Neck is supple and without jugular venous distention (JVD) or thyroid enlargement. Heart sounds regular and lungs clear to auscultation. Abdomen: Soft and nontender and bowel sounds are normal. Extremities: Without any cyanosis or clubbing. Left lower extremity edema has almost completely resolved and right lower extremity edema is now much improved to about 1+. Neurologically, she is awake, alert and oriented times three. Today's labs show WBC count 9.8, hemoglobin 8.4 and hematocrit 26.6. Sodium 133, potassium 3.8, BUN 63 and creatinine 1.81. PROBLEMS: 1. Acute renal failure superimposed on chronic kidney disease. Kidney function seems to be leveled off and at this point we will stop her diuretic and monitor her kidney function further without any diuretic. 2. Generalized edema and anasarca. Her volume status has improved significantly with diuresis. I am going to stop the IV Lasix for now and will use diuretic only as needed. 3. Hyponatremia. This is related to diuretic use and likely to improve over the next few days. No other intervention will be needed. 4. Anemia. She does have significant anemia related to probably DVTs and acute renal failure. She had severe iron deficiency and I will give her intravenous iron with Venofer 400 mg one dose. 5. DVT. The patient was treated with intravenous heparin and now she is on Eliquis 5 mg twice a day. 6. Generalized weakness and deconditioning. The patient is still quite weak and I have encouraged her to get out of bed and to start ambulating. She is likely to require rehab.
--- NOTE | 2019-04-24 14:30 | IPN ---
DATE OF SERVICE: 04/24/2019 Patient denies any pain in lower extremities. She is requiring to present assistance at all times in trying to get out of bed and transferring and pivoting. Patient has not progressed along, has not been ambulating well. She currently denies any shortness of breath, chest pain, pressure or tightness. She is very hard of hearing but denies nausea or vomiting, tolerating her diet and sleeping well. Temperature 99, pulse 68, respiratory rate 20, blood pressure 148/52, 96% on room air. Generally awake, alert and oriented to person, place and time, answering questions appropriately. Lungs are clear to auscultation. No wheezing, rales or rhonchi. Heart: S1, S2. Sinus rhythm. Abdomen: Soft. Nontender. Nondistended. Extremities: No cyanosis or clubbing. Patient has bilateral lower extremity edema currently with supraventricular tachycardia (SVT). Skin: Warm, dry, well perfused. Shedd in color. LABORATORY DATA: White count 9.8, hemoglobin 8.4, hematocrit 26, platelet count 241. Sodium 132, potassium 3.8, chloride 96, bicarbonate 28, BUN 63, creatinine 1.81, glucose 115, albumin of 2.2. Hemoccult stool, 04/23/2019, negative. ASSESSMENT AND PLAN: This is an 83-year-old female with history of paroxysmal SVT, cervical cancer, anemia, diabetes, hypertension admitted for: 1. Bilateral lower extremity deep venous thrombosis (DVT) status post inferior vena cava (IVC) filter on 04/17/2019 and status post IV heparin drip, currently on renally dosed Eliquis twice a day. Vascular surgery does not recommend a thrombectomy at this time and recommends direct oral anticoagulant. 2. Acute on chronic kidney disease (CKD) stage III with bilateral hydronephrosis. Per Urology, no stent is required. Nephrology is managing fluid balance and patient received IV Lasix, holding angiotensin receptor sravan (ARB) and angiotensin-converting enzyme (SAMIR) inhibitor for now. 3. Hemoccult stool negative with symptomatic anemia. Status post 2 units of red blood cell (RBC) transfusion. Negative hemoccult stools times two. No overt gastrointestinal (GI) bleeding. No hemodynamic instability. Denies any dizziness or lightheadedness. 4. Paroxysmal SVT. Currently rate controlled on chronic Eliquis. [facility]
[2019-04-24] MEDS: rOPINIRole 1MG TAB PO SCH (20:37)
[2019-04-24 22:00] VITALS: BP 155/55
[2019-04-25 06:00] VITALS: BP 149/56
[2019-04-25] MEDS: HumaLOG INSULIN (NovoLOG) PER UNIT SC SCH ×4 (07:36→21:00)
[2019-04-25 08:41] LABS: HEXAGONAL PHASE PHOSPHOLIPID 0 sec (0-11)
[2019-04-25] MEDS: APIXABAN 5 MG TAB (ELIQUIS) PO SCH ×2 (08:55→20:27)
[2019-04-25] MEDS: SERTRALINE HCL 25 MG TABLET PO SCH (08:55)
[2019-04-25] MEDS: DOCUSATE SODIUM 100 MG CAP PO SCH ×2 (08:55→20:27)
[2019-04-25] MEDS: SENNA 8.6 MG TAB (SENOKOT) PO SCH ×2 (08:56→20:27)
[2019-04-25] MEDS: SIMVASTATIN 40 MG TAB PO SCH (08:56)
[2019-04-25] MEDS: DIGOXIN 0.0625MG PER 1/2TABLET PO SCH (08:57)
[2019-04-25] MEDS: NADOLOL 20MG TABLET PO SCH (09:01)
[2019-04-25] MEDS: MIRALAX *UNIT DOSE* 17GM PACKET PO SCH (09:03)
[2019-04-25] MEDS ORDERED: FUROSEMIDE 40 MG/4 ML VIAL (J1940) IV ONE (10:30)
[2019-04-25 10:59] LABS: HEMATOCRIT 28.8 % (36.0-47.0); HEMOGLOBIN 8.6 g/dl (12.0-15.5); MEAN CORPUSCULAR HEMOGLOBIN 23.4 pg (27.0-33.0); MEAN CORPUSCULAR HGB CONC 29.9 g/dl (32.0-36.5); MEAN CORPUSCULAR VOLUME 78.5 fl (80.0-96.0); PLATELET COUNT, AUTOMATED 255 10^3/uL (150-450); RED BLOOD COUNT 3.67 10^6/uL (4.00-5.40); WHITE BLOOD COUNT 12.1 10^3/uL (4.0-10.0)
[2019-04-25 11:21] LABS: CREATININE FOR GFR 1.64 MG/DL (0.55-1.30)
[2019-04-25 11:22] LABS: CALCIUM LEVEL 9.1 MG/DL (8.8-10.2); GLOMERULAR FILTRATION RATE 31.7 (>32); POTASSIUM SERUM 3.8 MEQ/L (3.5-5.1)
--- NOTE | 2019-04-25 13:15 | IPN ---
DATE: 04/25/2019 Mrs. Ruvalcaba is seen this morning on her bedside. She is discouraged as she feels weak and unable to get up and ambulate. She denies any dyspnea, chest pain, nausea, vomiting, fever or chills. She had extensive deep vein thrombosis (DVT) in her right lower extremity and has been on Eliquis. She also had generalized edema and acute kidney injury. Her kidney function has gradually improved and peripheral edema has improved significantly. PHYSICAL EXAMINATION: Temperature 97.6 degrees Fahrenheit, heart rate 78 per minute and respiratory rate 18 per minute. Blood pressure 146/56 mmHg and oxygen saturation 92% on room air. Head is atraumatic. Neck is supple and without jugular venous distention (JVD) or thyroid enlargement. Heart sounds are regular and lungs clear to auscultation. Abdomen is soft and nontender and bowel sounds are normal. Extremities have no cyanosis or clubbing. Lower extremity edema is completely resolved on the left leg and much improved from the right. Right thigh still looks edematous. Neurologically, she is awake, alert and oriented times three. Today's labs show WBC count 12.1, hemoglobin 8.6 and hematocrit 28.8. Her chemistry is pending. PROBLEMS: 1. Acute kidney injury. Her creatinine had leveled off at about 1.8. Today's labs are still pending and we will review them when available. Kidney function has improved since admission and seems to be stable at present. 2. Anemia. She has iron deficiency anemia and was given one dose of Venofer 500 mg yesterday, which she tolerated very well. No need for transfusion at this point. 3. Generalized edema and hypervolemia. Most of her edema has improved, however, she still has mild edema on her right lower extremity and back. We will give her one dose of Lasix 40 mg intravenously today. 4. Hyponatremia. She has mild hyponatremia and today's electrolytes are still pending. 5. Generalized weakness. I have explained to the patient that she needs to make an effort to get out of bed and try to participate with physical therapy as much as possible. She is likely to require subacute rehab.
[2019-04-25] MEDS: rOPINIRole 1MG TAB PO SCH (20:27)
[2019-04-26 06:00] VITALS: BP 131/68
[2019-04-26 06:27] LABS: HEMATOCRIT 29.2 % (36.0-47.0); HEMOGLOBIN 8.7 g/dl (12.0-15.5); MEAN CORPUSCULAR HEMOGLOBIN 23.5 pg (27.0-33.0); MEAN CORPUSCULAR HGB CONC 29.8 g/dl (32.0-36.5); MEAN CORPUSCULAR VOLUME 78.9 fl (80.0-96.0); PLATELET COUNT, AUTOMATED 266 10^3/uL (150-450); WHITE BLOOD COUNT 16.4 10^3/uL (4.0-10.0)
[2019-04-26 06:55] LABS: ALBUMIN 2.1 GM/DL (3.2-5.2); CALCIUM LEVEL 9.1 MG/DL (8.8-10.2); CREATININE FOR GFR 1.6 MG/DL (0.55-1.30); GLOMERULAR FILTRATION RATE 32.6 (>32); PHOSPHORUS LEVEL 3.7 MG/DL (2.5-4.9)
[2019-04-26 08:01] VITALS: BP 143/65
[2019-04-26] MEDS: HumaLOG INSULIN (NovoLOG) PER UNIT SC SCH ×4 (08:11→21:00)
[2019-04-26 09:34] VITALS: BP 134/53
[2019-04-26] MEDS: DOCUSATE SODIUM 100 MG CAP PO SCH ×2 (09:35→20:02)
[2019-04-26] MEDS: SERTRALINE HCL 25 MG TABLET PO SCH (09:36)
[2019-04-26] MEDS: APIXABAN 5 MG TAB (ELIQUIS) PO SCH ×2 (09:36→20:03)
[2019-04-26] MEDS: MIRALAX *UNIT DOSE* 17GM PACKET PO SCH (09:37)
[2019-04-26] MEDS: DIGOXIN 0.125 MG TAB PO SCH (09:38)
[2019-04-26] MEDS: SIMVASTATIN 40 MG TAB PO SCH (09:38)
[2019-04-26] MEDS: SENNA 8.6 MG TAB (SENOKOT) PO SCH ×2 (09:38→20:02)
[2019-04-26] MEDS: NADOLOL 20MG TABLET PO SCH (09:39)
--- NOTE | 2019-04-26 09:42 | IPN ---
DATE: 04/25/2019 ADDENDUM: Patient appears to be stable with creatinine tapering at 1.8. She has no other new issues. Her anemia has been stable with no signs of gastrointestinal (GI) bleeding. Deep venous thrombosis (DVT) is treated with anticoagulation. Patient is stable for alternate level of care (ALC) status change. Addendum dictated: 04/25/2019 1749 Addendum transcribed: 04/26/2019 0925 samantha MANRIQUE
--- NOTE | 2019-04-26 13:50 | IPN ---
DATE OF VISIT: 04/26/2019 Mrs. Ruvalcaba is seen this morning on her bedside. She is feeling about the same and denies any new complaints. She has been mostly in the bed. On physical examination, temperature 98.6 degrees Fahrenheit, heart rate 92 per minute, and respiratory rate 16 per minute. Blood pressure 134/53 mmHg and oxygen saturation 94% on room air. Head is atraumatic. Neck is supple and without jugular venous distention (JVD) or thyroid enlargement. Heart sounds are regular and lungs clear to auscultation. Abdomen: Soft and nontender, and bowel sounds are normal. Extremities have no cyanosis or clubbing. Right thigh edema is slightly improved. She does have an area of erythema around her right groin area where she had her surgery recently. Today's laboratories show WBC count 16.4, hemoglobin 8.7, and hematocrit 29.2. Sodium 135, potassium 4.0, BUN 58, and creatinine 1.60. PROBLEMS: 1. Acute kidney injury superimposed on chronic kidney disease. Kidney function is without any change of address clerk the last 24 hours. This is probably her baseline function. We will continue to monitor as needed. 2. Generalized edema. She had generalized edema related to extensive deep venous thrombosis (DVT) and acute kidney injury. Her volume status has improved significantly, and now she is getting diuretic only on as-needed basis. 3. Leukocytosis. I am concerned about leukocytosis. She has a seroma in her right groin area where she had her surgery. I would suggest to hospitalist service to get this drained, either by surgery or by interventional radiology. 4. Generalized weakness and deconditioning. I have discussed with nursing staff and advised the patient should get out of bed at least three times a day. She needs to get physically more active and participate in her physical therapy.
[2019-04-26] MEDS: rOPINIRole 1MG TAB PO SCH (20:03)
[2019-04-27 06:00] VITALS: BP 154/50
[2019-04-27 06:57] LABS: CALCIUM LEVEL 8.5 MG/DL (8.8-10.2); CREATININE FOR GFR 1.53 MG/DL (0.55-1.30); GLOMERULAR FILTRATION RATE 34.3 (>32); POTASSIUM SERUM 4.1 MEQ/L (3.5-5.1)
[2019-04-27] MEDS: NADOLOL 20MG TABLET PO SCH (08:15)
[2019-04-27] MEDS: MIRALAX *UNIT DOSE* 17GM PACKET PO SCH (08:15)
[2019-04-27] MEDS: APIXABAN 5 MG TAB (ELIQUIS) PO SCH ×2 (08:16→20:05)
[2019-04-27] MEDS: DOCUSATE SODIUM 100 MG CAP PO SCH ×2 (08:16→20:05)
[2019-04-27] MEDS: DIGOXIN 0.0625MG PER 1/2TABLET PO SCH (08:16)
[2019-04-27] MEDS: SERTRALINE HCL 25 MG TABLET PO SCH (08:16)
[2019-04-27] MEDS: SIMVASTATIN 40 MG TAB PO SCH (08:16)
[2019-04-27] MEDS: SENNA 8.6 MG TAB (SENOKOT) PO SCH ×2 (08:16→20:05)
[2019-04-27] MEDS: HumaLOG INSULIN (NovoLOG) PER UNIT SC SCH ×4 (08:17→20:08)
[2019-04-27] MEDS: rOPINIRole 1MG TAB PO SCH (20:05)
[2019-04-28 06:36] LABS: CALCIUM LEVEL 8.7 MG/DL (8.8-10.2); CREATININE FOR GFR 1.59 MG/DL (0.55-1.30); GLOMERULAR FILTRATION RATE 32.8 (>32)
[2019-04-28] MEDS: SENNA 8.6 MG TAB (SENOKOT) PO SCH ×2 (08:40→20:42)
[2019-04-28] MEDS: NADOLOL 20MG TABLET PO SCH (08:40)
[2019-04-28] MEDS: MIRALAX *UNIT DOSE* 17GM PACKET PO SCH (08:40)
[2019-04-28] MEDS: APIXABAN 5 MG TAB (ELIQUIS) PO SCH ×2 (08:40→20:42)
[2019-04-28] MEDS: DOCUSATE SODIUM 100 MG CAP PO SCH ×2 (08:40→20:42)
[2019-04-28] MEDS: HumaLOG INSULIN (NovoLOG) PER UNIT SC SCH ×4 (08:40→20:42)
[2019-04-28] MEDS: SERTRALINE HCL 25 MG TABLET PO SCH (08:40)
[2019-04-28] MEDS: SIMVASTATIN 40 MG TAB PO SCH (08:41)
[2019-04-28] MEDS: DIGOXIN 0.125 MG TAB PO SCH (08:41)
[2019-04-28 10:06] LABS: ANCA-ATYPICAL <1:20 titer (Neg:<1:20); ANTI THROMBIN 3 ANTIGEN IMMUNO 92 % (72-124); ANTI THROMBIN 3 FUNCT ACTIVITY 100 % (75-135); ANTINUCLEAR ANTIBODIES DIRECT Negative (Negative); CARDIOLIPIN IGA ANTIBODY <9 APL U/mL (0-11); CARDIOLIPIN IGG ANTIBODY 13 GPL U/mL (0-14); CARDIOLIPIN IGM ANTIBODY <9 MPL U/mL (0-12); CYTOPLASMIC NEUTROP AB ANCA-C <1:20 titer (Neg:<1:20); HOMOCYST(E)INE SERUM 17.7 umol/L (0.0-15.0); PERINUCLEAR AB ANCA-P <1:20 titer (Neg:<1:20); PROTEIN C ANTIGEN 79 % (60-150); PROTEIN S ANTIGEN FREE 91 % (57-157); PROTEIN S ANTIGEN TOTAL 137 % (60-150); SJOGREN'S ANTI SS-A <0.2 AI (0.0-0.9); SJOGREN'S ANTI SS-B <0.2 AI (0.0-0.9)
[2019-04-28] MEDS ORDERED: FLUCONAZOLE 100 MG TAB PO ONE (12:00)
--- NOTE | 2019-04-28 18:57 | IPN ---
DATE: 04/27/2019 Mrs. Guido is seen this morning on her bedside. She is feeling about the same and remains discouraged as she is not able to get up by herself. Nursing staff was advised yesterday to get her out of bed. However, she still in the bed today. She denies any nausea, vomiting, dyspnea or chest pain. PHYSICAL EXAMINATION: Temperature 99 degrees Fahrenheit, heart rate 75 per minute and respiratory rate 18 per minute. Blood pressure 144/50 mmHg and oxygen saturation 95% on room air. Head is atraumatic. Neck is supple and without jugular venous distention (JVD) or thyroid enlargement. Her heart sounds are regular and lungs clear to auscultation. Abdomen: Soft and nontender. Bowel sounds are normal. Extremities: Without any cyanosis or clubbing. Right lower extremity edema is improved significantly and left lower extremity edema has resolved almost completely. Today's labs show sodium level 136, potassium 4.1, CO2 27, BUN 64 and creatinine 1.53. Calcium level is 8.5. PROBLEMS: 1. Acute kidney injury superimposed on chronic kidney disease. Slight improvement in kidney function is noticed over the last 24 hours. Her electrolytes are stable. 2. Hyponatremia. She did have mild hyponatremia, which has improved. She is not receiving diuretic on a daily basis. 3. Generalized edema. She did have lower body edema, which has improved significantly with diuresis and now we are using diuretic only as needed basis. 4. Leukocytosis. I am concerned about worsening leukocytosis. CBC will be repeated again tomorrow morning. I recommend to get an interventional radiology consult for possible drainage of seroma in her right groin area, which could be the source of leukocytosis. 5. Generalized weakness and deconditioning. The patient needs to be mobilized. We need to increase her activity and nursing staff has been advised to get her out of bed at least three times a day.
[2019-04-28] MEDS: rOPINIRole 1MG TAB PO SCH (20:42)
[2019-04-29 06:00] VITALS: BP 138/50
[2019-04-29 07:24] LABS: CALCIUM LEVEL 8.9 MG/DL (8.8-10.2); CREATININE FOR GFR 1.6 MG/DL (0.55-1.30); GLOMERULAR FILTRATION RATE 32.6 (>32); POTASSIUM SERUM 4.2 MEQ/L (3.5-5.1)
[2019-04-29] MEDS: SERTRALINE HCL 25 MG TABLET PO SCH (08:33)
[2019-04-29] MEDS: APIXABAN 5 MG TAB (ELIQUIS) PO SCH (08:33)
[2019-04-29] MEDS: MIRALAX *UNIT DOSE* 17GM PACKET PO SCH (08:33)
[2019-04-29] MEDS: SENNA 8.6 MG TAB (SENOKOT) PO SCH ×2 (08:33→08:44)
[2019-04-29] MEDS: DOCUSATE SODIUM 100 MG CAP PO SCH ×2 (08:34→08:44)
[2019-04-29] MEDS: SIMVASTATIN 40 MG TAB PO SCH (08:34)
[2019-04-29] MEDS: HumaLOG INSULIN (NovoLOG) PER UNIT SC SCH ×2 (08:34→11:57)
[2019-04-29] MEDS: DIGOXIN 0.0625MG PER 1/2TABLET PO SCH (08:34)
[2019-04-29 08:39] VITALS: BP 120/46
[2019-04-29] MEDS: NADOLOL 20MG TABLET PO SCH (08:39)
[2019-04-29] MEDS ORDERED: FLUCONAZOLE 100 MG TAB PO SCH (09:00)
--- NOTE | 2019-04-29 09:26 | IPN ---
DATE OF VISIT: 04/28/2019 Mrs. Ruvalcaba is seen this morning on her bedside. She was dosed off and I woke her up. She reports that she did get out of bed in the chair this morning and walked to the bathroom. Now her leg is hurting so she is resting. She denies any nausea, vomiting, dyspnea or chest pain. She still has a Jeffries catheter in place and her urinalysis did show a large amount of yeast. On physical exam, she is awake and alert and at her baseline mentation. Temperature 99 degrees Fahrenheit, heart rate 68 per minute and respiratory rate 16 per minute. Blood pressure 141/52 mmHg and oxygen saturation 98% on room air. Head is atraumatic. Neck is supple and without jugular venous distention (JVD) or thyroid enlargement. Heart sounds regular and lungs clear to auscultation. Abdomen soft and nontender, and bowel sounds are normal. Extremities without any cyanosis or clubbing. Her right thigh swelling is gradually improving. Left lower extremity swelling has resolved. Neurologically, she is awake, alert and oriented times three. Today's labs show sodium 135, potassium 4.0, BUN 67 and creatinine 1.59. Glucose 153 and calcium 8.7. PROBLEMS: 1. Acute renal failure superimposed on chronic kidney disease. No significant change in kidney function over last 3 days. We will continue to monitor closely. No diuretics being used at present. 2. Urinary tract infection (UTI) leukocytosis. She does have large amount of Sara in her urine. She has a Jeffries catheter in for several days. I am going to remove her Jeffries catheter and treat her with Diflucan 200 mg dose today and then 100 mg. 3. Anemia. At present, her anemia is stable and she was given intravenous iron just a few days ago. We will continue to monitor her closely. No urgent need for transfusion. 4. Generalized weakness and deconditioning. Patient continues to participate with physical therapy (PT) and is gradually improving. She needs to get out of bed at least three times a day. 5. Deep venous thrombosis (DVT). Patient remains on Eliquis 5 mg twice a day.
[2019-04-29] MEDS ORDERED: ELIQ5TAB PO (10:16)
[2019-04-29] MEDS ORDERED: FLUC10TA PO (10:16)
[2019-04-29] MEDS ORDERED: INSUHUMDS SC ×2 (11:11)
--- NOTE | 2019-04-29 11:14 | DSES ---
DATE OF ADMISSION: 04/16/2019 DATE OF DISCHARGE: PRIMARY CARE PROVIDER: Unknown. CONSULTATIONS: Consultants were Dr. Cuellar, Dr. Berry, Dr. Meléndez, urology. Being transferred to a [facility]. HISTORY: This patient was not seen by me during her hospitalization. She is being discharged during my coverage for the hospitalist group. She was placed on long term facility (SNF) level of care 04/26/2019. The patient was transferred from [facility] for left femoral deep venous thrombosis (DVT). Initially treated with vancomycin and Zosyn. Was felt to have a DVT and was transferred to [facility] for interventional radiology for inferior vena cava (IVC) filter placement. Details in history and physical from admission. HOSPITAL COURSE: The patient was admitted to [facility]. She was seen by Dr. Cuellar. IVC filter was placed by Dr. Cuellar with a Cook Celect filter in the infrarenal inferior vena cava. They plan retrieval of the filter when no longer needed and plan to see the patient back in 6 months. Seen by nephrology. Renal ultrasound showed mld hydronephrosis and hydroureter on the right and moderate to severe hydronephrosis and hydroureter on the left. Was seen in consultation by Dr. Meléndez from urology, who recommended observation for now, that the patient was fragile and did not have a lot of symptoms. Thought fecal disimpaction would help the hydronephrosis. Recommended eventual cystoscopy to evaluate the bladder to be done as an outpatient. Seen primarily by nephrology for her acute kidney injury on chronic kidney disease. Had a gunnar urinary tract infection (UTI) for which was treated with Diflucan, started yesterday. Treated with a dose of Eliquis 5 mg twice daily. On day of discharge, her blood pressure (BP) is 120/46 with a pulse of 64. The patient is afebrile. MOST RECENT LABORATORIES: White count 16.4, hemoglobin 8.7, platelets 266. Sodium 136, potassium 4.2, BUN 66, creatinine 1.6, glucose 150. Digoxin level is 1.4. Lupus screen was negative. Prothrombin gene mutation was not present. Factor V Leiden was negative. Protein C, protein S, antithrombin-3 antigen activity were all negative. Lupus anticoagulant screen ratio was mildly elevated, but followup lupus anticoagulant testing was normal. results indicate the presence of lupus anticoagulant. CURRENT MEDICATIONS: - Diflucan 100 mg daily for 5 more days of a 7-day course - sliding scale insulin based upon fingerstick blood sugars - Eliquis 5 mg twice a day - Senokot twice a day - Lanoxin 0.125 mg alternating with 0.0625 mg daily - MiraLAX a packet daily - Tylenol as needed - Ultram 50 mg every 6 hours as needed - nadolol 20 mg daily - Zoloft 25 mg daily - simvastatin 40 mg daily - Requip 1 mg in the evening with another mg at bedtime as needed for restless legs - Colace as needed Activity as tolerated. [id number] consistent-carbohydrate diet recommended. Followup advised in urology and nephrology as an out patient. DIAGNOSES LIST: 1. Bilateral lower extremity deep venous thrombosis (DVT), status post IVC filter, with ongoing anticoagulation. 2. Acute on chronic kidney disease stage III chronic kidney disease. 3. Anemia, probably secondary to chronic kidney disease, status post 2 units of packed red blood cells. 4. Paroxysmal supraventricular tachycardia. 5. Type 2 diabetes with recurrent hypoglycemia. 6. Hyperlipidemia. 7. History of depression. 8. Restless legs syndrome.
--- NOTE | 2019-04-29 18:45 | IPN ---
DATE: 04/29/2019 Ms. Gilbert seen this morning on her bedside. She is feeling about the same currently laying in the bed. She reports that she did get up in the chair this morning. She also tells me that she is going to be transferred to [facility] for rehab. She denies any nausea, vomiting, dyspnea or chest pain. PHYSICAL EXAMINATION: Temperature 98.9 degrees Fahrenheit, heart rate 78 per minute and respiratory rate 18 per minute. Blood pressure 120/46 mmHg and oxygen saturation 94%. Her heart sounds are regular and lungs clear to auscultation. Abdomen: Soft and nontender. Bowel sounds are normal. Extremities have no cyanosis or clubbing. Right thigh edema has improved significantly. Today's labs show sodium 136, potassium 4.2, BUN 66 and creatinine 1.60. Calcium level is 8.9. PROBLEMS: 1. Acute renal failure superimposed on chronic kidney disease. Her kidney function has improved and stabilized. This is probably her baseline function. She has been not on any diuretic now. 2. Generalized edema. Most likely it was related to extensive deep vein thrombosis (DVT) and acute renal failure. Her volume status is now well compensated. She is currently not on any maintenance diuretic. 3. Hyponatremia. Her sodium level has also improved and stabilized. No intervention is indicated. 4. Anemia. She has severe iron deficiency and we have given her a dose of intravenous iron. Her anemia is gradually improving. She should continue with oral iron supplement. 5. Leukocytosis and urinary tract infection (UTI). She did have fungus in her urine and her Jeffries catheter was removed yesterday. She is now on Diflucan 100 mg daily, which should be continued for at least one week. She also has a fluid collection in her right groin at the site of surgery, which will need to be addressed with a surgical followup.
== END 2019-04-29 12:41 | DRG 253 ==
LOC: M MSPAV 14:26
PROVIDERS: ADMIT Internal Medicine; ATTEND Family Medicine
PROC: 06H03DZ Insertion of Intraluminal Device into Inferior Vena Cava, Percutaneous Approach (ICD-10-PCS; principal; 2019-04-17 10:00)
DX: I82.412 Acute embolism and thrombosis of left femoral vein (principal); E46 Unspecified protein-calorie malnutrition; N13.30 Unspecified hydronephrosis; I50.32 Chronic diastolic (congestive) heart failure; N17.9 Acute kidney failure, unspecified; E87.1 Hypo-osmolality and hyponatremia; I47.1 Supraventricular tachycardia; I13.0 Hypertensive heart and chronic kidney disease with heart failure and stage 1 through stage 4 chronic kidney disease, or unspecified chronic kidney disease; N18.4 Chronic kidney disease, stage 4 (severe); K91.872 Postprocedural seroma of a digestive system organ or structure following a digestive system procedure; N39.0 Urinary tract infection, site not specified; R60.1 Generalized edema; I82.411 Acute embolism and thrombosis of right femoral vein; D63.1 Anemia in chronic kidney disease; E11.649 Type 2 diabetes mellitus with hypoglycemia without coma; F32.9 Major depressive disorder, single episode, unspecified; Z85.41 Personal history of malignant neoplasm of cervix uteri; E11.40 Type 2 diabetes mellitus with diabetic neuropathy, unspecified; E11.21 Type 2 diabetes mellitus with diabetic nephropathy; K21.9 Gastro-esophageal reflux disease without esophagitis; J45.909 Unspecified asthma, uncomplicated; G25.81 Restless legs syndrome; E78.5 Hyperlipidemia, unspecified; F41.9 Anxiety disorder, unspecified; Z79.899 Other long term (current) drug therapy; D72.829 Elevated white blood cell count, unspecified; Z68.22 Body mass index [BMI] 22.0-22.9, adult